=== PATIENT | male | born 1960 | race African-American/Black ===

== ENCOUNTER 2018-02-02 12:34 | Inpatient (IN) | payer OTHER ==
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
[2018-02-02] MEDS ORDERED: KETOROLAC TROMETHAMINE 30 MG/1 ML VIAL IM ONE (13:21)
[2018-02-02] MEDS ORDERED: CYCLOBENZAPRINE HCL 10 MG TABLET (FP) PO ONE ×2 (13:21→13:30)
[2018-02-02] MEDS ORDERED: KETOROLAC TROMETHAMINE 30 MG/1 ML VIAL ONE (13:26)
[2018-02-02] MEDS ORDERED: CYCLOBENZAPRINE HCL 10 MG TABLET (FP) ONE (13:26)
[2018-02-02] MEDS ORDERED: diazePAM 5 MG TABLET PO ONE (13:28)
[2018-02-02] MEDS ORDERED: ACETAMINOPHEN 325 MG TABLET (FP) PO ONE (13:28)
[2018-02-02] MEDS ORDERED: SODIUM CHLORIDE 0.9% 1000 ML INFUS.BAG IV ONE ×2 (13:29→17:05)
[2018-02-02] MEDS ORDERED: ACETAMINOPHEN 325 MG TABLET (FP) ONE (13:30)
[2018-02-02] MEDS ORDERED: diazePAM 5 MG TABLET ONE (13:31)
[2018-02-02 14:33] LABS: BASO % 0.7 % (0-2.0); EOS % 1.2 % (0-4.5); HEMATOCRIT 41.5 % (35.4-49); HEMOGLOBIN 13.5 GM/dL (11.7-16.9); MCH 25.8 pg (25.7-33.7); MCHC 32.5 g/dl (32.0-35.9); MEAN CELL VOLUME 79.4 fl (80-96); MEAN PLT VOLUME 9.8 fl (7.5-11.1); MONO % 9.5 % (3.8-10.2); NEUT % 69.6 % (42.8-82.8); PLATELET COUNT 222 K/MM3 (134-434); RBC 5.23 M/mm3 (4.00-5.60); RDW 14.6 % (11.9-15.9); WHITE BLOOD COUNT 10.1 K/mm3 (4.0-10.0)
[2018-02-02 15:01] LABS: INR 0.99 (0.83-1.09); PROTHROMBIN TIME (PATIENT) 11.7 SEC (9.7-13.0)
[2018-02-02 15:04] LABS: ACTIVATED PTT 25.7 SECONDS (25.2-36.5)
[2018-02-02 15:18] LABS: ALBUMIN 4.3 g/dl (3.4-5.0); ALK PHOS 116 U/L (45-117); ANION GAP 9 MMOL/L (8-16); BILIRUBIN,TOTAL 0.6 mg/dL (0.2-1); BLOOD UREA NITROGEN 42 mg/dL (7-18); CALCIUM 9.7 mg/dL (8.5-10.1); CHLORIDE 98 mmol/L (98-107); CO2 26 mmol/L (21-32); CREATININE 2.3 mg/dL (0.55-1.3); POTASSIUM 4.3 mmol/L (3.5-5.1); SGOT/AST 31 U/L (15-37); SGPT/ALT 45 U/L (13-61); SODIUM 133 mmol/L (136-145); TOT PROT 8.6 g/dl (6.4-8.2)
[2018-02-02 15:29] LABS: GLUCOSE,RANDOM 345 mg/dL (74-106)
[2018-02-02] MEDS ORDERED: CYCLOBENZAPRINE HCL 5 MG TABLET PO PRN ×2 (17:57→18:00)
[2018-02-02] MEDS: SODIUM CHLORIDE 1,000 ML IV SCH ×2 (18:45→22:28)
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
[2018-02-02 20:07] LABS: URINE APPEARANCE CLEAR; URINE BILIRUBIN NEGATIVE (<2.0 mg/dL); URINE COLOR LTYELLOW; URINE GLUCOSE (UA) 3+ (NEGATIVE); URINE KETONE NEGATIVE (NEGATIVE); URINE LEUK ESTERASE NEGATIVE (NEGATIVE); URINE NITRITE NEGATIVE (NEGATIVE); URINE PROTEIN 1+ (NEGATIVE); URINE UROBILINOGEN NEGATIVE mg/dL (0.2-1.0)
[2018-02-02 20:10] LABS: EPI CELLS RARE /HPF (FEW); URINE MUCUS RARE
[2018-02-02] MEDS ORDERED: oxyCODONE HCL 5 MG TABLET ONE (21:06)
[2018-02-02] MEDS: oxyCODONE HCL 5 MG TABLET PO PRN (21:17)
[2018-02-02] MEDS: METOPROLOL TARTRATE 25 MG TABLET (FP) PO SCH (22:29)
[2018-02-02] MEDS: INSULIN SLIDING SCALE (NOVOLOG) 1 VIAL SQ SCH (22:29)
[2018-02-03] MEDS: oxyCODONE HCL 5 MG TABLET PO PRN ×4 (01:59→22:25)
[2018-02-03] MEDS: INSULIN SLIDING SCALE (NOVOLOG) 1 VIAL SQ SCH ×4 (06:02→22:30)
[2018-02-03 08:12] LABS: HEMATOCRIT 37.2 % (35.4-49); HEMOGLOBIN 12.1 GM/dL (11.7-16.9); MCHC 32.5 g/dl (32.0-35.9); MEAN CELL VOLUME 80.1 fl (80-96); MEAN PLT VOLUME 9.6 fl (7.5-11.1); PLATELET COUNT 197 K/MM3 (134-434); RBC 4.65 M/mm3 (4.00-5.60); RDW 14.2 % (11.9-15.9); WHITE BLOOD COUNT 7.5 K/mm3 (4.0-10.0)
[2018-02-03 08:23] LABS: ANION GAP 6 MMOL/L (8-16); BLOOD UREA NITROGEN 38 mg/dL (7-18); CALCIUM 8.4 mg/dL (8.5-10.1); CHLORIDE 106 mmol/L (98-107); CO2 24 mmol/L (21-32); CREATININE 1.9 mg/dL (0.55-1.3); GLUCOSE,RANDOM 157 mg/dL (74-106); POTASSIUM 3.9 mmol/L (3.5-5.1); SODIUM 136 mmol/L (136-145)
[2018-02-03 08:26] LABS: CHOLESTEROL 161 mg/dL (50-200); HDL CHOLESTEROL 41 mg/dL (40-60); TRIGLYCERIDES 132 mg/dL (0-150)
[2018-02-03] MEDS ORDERED: INSULIN (NOVOLOG) ASPART 100 UNITS/ML 10ML VIAL ONE ×2 (08:45→10:44)
[2018-02-03] MEDS ORDERED: FLU VACCINE QUAD 60 MCG/0.5 ML (MDV 18-19) IM ONE (10:00)
[2018-02-03] MEDS: METOPROLOL TARTRATE 25 MG TABLET (FP) PO SCH ×2 (10:41→22:20)
[2018-02-03] MEDS: ASPIRIN 81 MG CHEWABLE TABLETS PO SCH (10:41)
[2018-02-03] MEDS: SODIUM CHLORIDE 1,000 ML IV SCH ×3 (10:41→22:20)
--- NOTE | 2018-02-03 10:41 | EKG ---
Test Reason : Blood Pressure : / mmHG Vent. Rate : 085 BPM Atrial Rate : 085 BPM P-R Int : 160 ms QRS Dur : 114 ms QT Int : 376 ms P-R-T Axes : 051 -25 227 degrees QTc Int : 447 ms NORMAL SINUS RHYTHM VOLTAGE CRITERIA FOR LEFT VENTRICULAR HYPERTROPHY CANNOT RULE OUT SEPTAL INFARCT (CITED ON OR BEFORE 23-JUN-2008) T WAVE ABNORMALITY, CONSIDER INFEROLATERAL ISCHEMIA ABNORMAL ECG WHEN COMPARED WITH ECG OF 23-JUN-2008 20:06, Confirmed by BULMARO WASHBURN MD ([id number]) on 02/03/2018 10:40:51 AM Referred By: Confirmed By:BULMARO WASHBURN MD
[2018-02-03] MEDS ORDERED: CYCLOBENZAPRINE HCL 10 MG TABLET (FP) PO PRN (10:46)
--- NOTE | 2018-02-03 13:07 | CONSULT ---
Consult Consult Specialty:: Nephrology Reason for Consultation:: KAVEH and rhabdo - History of Present Illness Chief Complaint: back pain History of Present Illness: Pt is a 57 year old male with pmhx of CAD, chronic back pain, AICD, and HLD who presented with right sided back pain that radiated down his leg. He was found to be in acute renal failure and was found to have rhabdo. He denies dysuria or hematuria. He denies nsaid use. He is on a statin. He denies history of kidney disease. He denies shortness of breath or lower ext edema. He denies fevers or chills. - History Source History Provided By: Patient - Past Medical History Cardio/Vascular: Yes: HTN, Hyperlipdemia Musculoskeletal: Yes: Chronic low back pain Endocrine: Yes: Diabetes Mellitus - Alcohol/Substance Use Hx Alcohol Use: Yes (occasion) - Smoking History Smoking history: Never smoked Have you smoked in the past 12 months: No Home Medications - Allergies Allergies/Adverse Reactions: Allergies Allergy/AdvReac Type Severity Reaction Status Date / Time No Known Allergies Allergy Verified 02/02/18 13:00 - Home Medications Home Medications: Ambulatory Orders Cyclobenzaprine HCl [Flexeril -] 10 mg PO TID #21 tablet 11/10/13 Oxycodone HCl/Acetaminophen [Percocet 5-325 mg Tablet -] 1 tab PO Q6H #10 tablet 11/10/13 metFORMIN HCL [Glucophage -] 0 mg PO DAILY 11/10/13 Family Disease History - Family Disease History Family History: Denies Review of Systems - Review of Systems Constitutional: reports: Malaise. denies: Chills, Fever Eyes: reports: No Symptoms HENT: reports: No Symptoms Neck: reports: No Symptoms Cardiovascular: reports: No Symptoms Respiratory: reports: No Symptoms Gastrointestinal: reports: No Symptoms Genitourinary: reports: No Symptoms Musculoskeletal: reports: Back Pain Neurological: reports: No Symptoms Endocrine: reports: No Symptoms Hematology/Lymphatic: reports: No Symptoms Psychiatric: reports: No Symptoms Physical Exam Vital Signs: Vital Signs Temperature 98.6 F 02/03/18 09:00 Pulse Rate 80 02/03/18 09:00 Respiratory Rate 18 02/03/18 09:00 Blood Pressure 138/96 02/03/18 09:00 O2 Sat by Pulse Oximetry (%) 99 02/02/18 22:00 Eyes: Yes: Conjunctiva Clear HENT: Yes: Atraumatic Neck: Yes: Supple Cardiovascular: Yes: S1, S2 Respiratory: Yes: CTA Bilaterally Gastrointestinal: Yes: Normal Bowel Sounds, Soft, Abdomen, Obese Renal/: Yes: WNL Musculoskeletal: Yes: Back Pain Edema: No Neurological: Yes: Oriented Psychiatric: Yes: Oriented Labs: CBC, BMP 02/03/18 06:50 02/03/18 06:50 Laboratory Tests 02/02/18 02/02/18 02/03/18 13:13 13:15 06:50 WBC 10.1 H 7.5 Creatinine 2.3 H Hemoglobin A1c % Creatine Kinase 1195 H Total LDL Cholesterol 02/03/18 02/03/18 02/03/18 06:50 06:50 06:50 WBC Creatinine 1.9 H Hemoglobin A1c % 12.1 H Creatine Kinase 784 H Total LDL Cholesterol 103 H Imaging - Results Ultrasound: Report Reviewed (right side hydro) Problem List - Problems (1) Hydronephrosis Code(s): N13.30 - UNSPECIFIED HYDRONEPHROSIS (2) Acute kidney injury Code(s): N17.9 - ACUTE KIDNEY FAILURE, UNSPECIFIED (3) Rhabdomyolysis Code(s): M62.82 - RHABDOMYOLYSIS (4) CAD (coronary artery disease) Code(s): I25.10 - ATHSCL HEART DISEASE OF [place] CORONARY ARTERY W/O ANG PCTRS (5) Hyperlipidemia Code(s): E78.5 - HYPERLIPIDEMIA, UNSPECIFIED (6) Hypertension Code(s): I10 - ESSENTIAL (PRIMARY) HYPERTENSION (7) Lumbar back pain Code(s): M54.5 - LOW BACK PAIN (8) Type 2 diabetes mellitus Code(s): E11.9 - TYPE 2 DIABETES MELLITUS WITHOUT COMPLICATIONS Assessment/Plan Current Medications Generic Name Dose Route Start Last Admin Trade Name Freq PRN Reason Stop Dose Admin Acetaminophen 650 mg 02/02/18 17:48 Tylenol - PO Q4H PRN PAIN LEVEL 1 - 3 Aspirin 81 mg 02/03/18 10:00 02/03/18 10:41 Asa - PO 81 mg DAILY KIRK Administration Cyclobenzaprine HCl 5 mg 02/03/18 10:46 02/03/18 12:52 Flexeril - PO 5 mg Q8H PRN Administration MUSCLE SPASMS Sodium Chloride 1,000 mls @ 125 mls/hr 02/02/18 18:00 02/03/18 10:41 Normal Saline - IV 125 mls/hr ASDIR KIRK Administration Insulin Aspart 1 vial 02/02/18 22:00 02/03/18 12:09 Novolog Vial Sliding Scale - SQ 8 units ACHS KIRK Administration Protocol Metoprolol Tartrate 25 mg 02/02/18 22:00 02/03/18 10:41 Lopressor - PO 25 mg BID KIRK Administration Oxycodone HCl 5 mg 02/02/18 17:58 Roxicodone - PO Q4H PRN PAIN LEVEL 4 - 6 Oxycodone HCl 10 mg 02/02/18 17:58 02/03/18 08:49 Roxicodone - PO 10 mg Q4H PRN Administration PAIN LEVEL 7 - 10 Laboratory Tests 02/02/18 19:38 Urine Protein 1+ H Urine Glucose (UA) 3+ H Urine Blood 1+ H Impression 1. KAVEH 2. rhabdo 3. right side hydro 4. DM uncontrolled 5. HTN 6. back pain 7. aicd 8. HLD Plan - decrease rate of fluids - unclear why pt has aicd - cpk is improving - pt says he was on a statin but does not remember which one - agree with holding metformin - pt will also need further outpt follow for CKD management and workup - urology eval for the hydro - repeat labs in am Dr Ivy
[2018-02-03] MEDS ORDERED: SODIUM CHLORIDE 1,000 ML IV SCH (13:13)
--- NOTE | 2018-02-03 13:58 | ECHO ---
Name: CITLALY KEATING Exam:Adult Echocardiogram Study Date: 02/03/2018 11:04 AM Age: 57 yrs Reason For Study: SOB CAD Height: 71 in Weight: 180 lb BSA: 2.0 m2 MMode/2D Measurements & Calculations IVSd: 1.0 cm Ao root diam: 3.0 cm LVIDd: 4.0 cm LA dimension: 3.5 cm LVIDs: 2.9 cm LVPWd: 0.99 cm EDV(Teich): 68.1 ml TAPSE: 1.4 cm ESV(Teich): 32.4 ml RV S Ej: 9.5 cm/sec Doppler Measurements & Calculations MV E max ej: 36.6 cm/sec TR max ej: 215.5 cm/sec MV A max ej: 50.9 cm/sec TR max P.6 mmHg MV E/A: 0.72 Med Peak E' Ej: 3.6 cm/sec Med E/e': 10.2 Lat Peak E' Ej: 4.8 cm/sec Lat E/e': 7.7 Procedure A complete two-dimensional transthoracic echocardiogram was performed (2D, M-mode, Doppler and color flow Doppler). The study was technically good with many images being of high quality. Left Ventricle The left ventricle is normal in size. There is severe concentric left ventricular hypertrophy. Left ventricular systolic function is normal. Ejection Fraction = 60-65%. E/A reversal with TDI revealing impaired relaxation and normal filling pressure (E/E' 10). No regional wall motion abnormalities noted. Right Ventricle The right ventricle is normal size. The right ventricular systolic function is normal. RV systolic TD I is 10 cm/s. Atria The left atrial size is normal. Right atrial size is normal. Mitral Valve There is mild mitral annular calcification. There is no mitral regurgitation noted. Tricuspid Valve The tricuspid valve is normal in structure and function. There is mild tricuspid regurgitation. Pulmo nary artery systolic pressure is at least 25 mmHg assuming RA pressure of 3 mmHg. Aortic Valve There is mild aortic sclerosis.;. No aortic regurgitation is present. Pulmonic Valve The pulmonic valve is not well visualized. Great Vessels The aortic root is normal size. Pericardium/Pleura There is no pericardial effusion. Interpretation Summary The left ventricle is normal in size. There is severe concentric left ventricular hypertrophy. Left ventricular systolic function is normal. No regional wall motion abnormalities noted. Ejection Fraction = 60-65%. The right ventricular systolic function is normal. The left atrial size is normal. Right atrial size is normal. There is mild mitral annular calcification. There is mild tricuspid regurgitation. Pulmonary artery systolic pressure is at least 25 mmHg assuming RA pressure of 3 mmHg There is mild aortic sclerosis.; There is no pericardial effusion. Previous study is not available for comparison French Gutiérrez MD 02/03/2018 01:57 PM
--- NOTE | 2018-02-03 21:32 | PN ---
Progress Note, Physician History of Present Illness: Pt still complains of back pain - Current Medication List Current Medications: Active Medications Acetaminophen (Tylenol -) 650 mg PO Q4H PRN PRN Reason: PAIN LEVEL 1 - 3 Aspirin (Asa -) 81 mg PO DAILY [facility] Last Admin: 02/03/18 10:41 Dose: 81 mg Celecoxib (Celebrex -) 200 mg PO BID [facility] Cyclobenzaprine HCl (Flexeril -) 10 mg PO Q8H PRN PRN Reason: MUSCLE SPASM Sodium Chloride (Normal Saline -) 1,000 mls @ 75 mls/hr IV ASDIR [facility] Last Admin: 02/03/18 13:54 Dose: 75 mls/hr Insulin Aspart (Novolog Vial Sliding Scale -) 1 vial SQ ACHS [facility]; Protocol Last Admin: 02/03/18 17:18 Dose: 6 units Metoprolol Tartrate (Lopressor -) 25 mg PO BID [facility] Last Admin: 02/03/18 10:41 Dose: 25 mg Oxycodone HCl (Roxicodone -) 5 mg PO Q4H PRN PRN Reason: PAIN LEVEL 4 - 6 Oxycodone HCl (Roxicodone -) 10 mg PO Q4H PRN PRN Reason: PAIN LEVEL 7 - 10 Last Admin: 02/03/18 16:53 Dose: 10 mg - Objective Vital Signs: Vital Signs Temperature 97.7 F 02/03/18 18:00 Pulse Rate 72 02/03/18 18:00 Respiratory Rate 20 02/03/18 18:00 Blood Pressure 144/75 02/03/18 18:00 O2 Sat by Pulse Oximetry (%) 99 02/03/18 10:00 HENT: Yes: WNL Neck: Yes: WNL, Supple Cardiovascular: Yes: WNL, Regular Rate and Rhythm Respiratory: Yes: WNL, Regular, CTA Bilaterally Gastrointestinal: Yes: WNL, Normal Bowel Sounds, Soft Labs: CBC, BMP 02/03/18 06:50 02/03/18 06:50 INR, PTT INR 0.99 (0.83-1.09) 02/02/18 13:15 Problem List - Problems (1) Acute on chronic renal failure Assessment/Plan: As per renal Cont IVF Monitor labs Avoid nephrotoxic meds Code(s): N17.9 - ACUTE KIDNEY FAILURE, UNSPECIFIED; N18.9 - CHRONIC KIDNEY DISEASE, UNSPECIFIED (2) Rhabdomyolysis Assessment/Plan: Cont IVF Code(s): M62.82 - RHABDOMYOLYSIS (3) Lumbar back pain Assessment/Plan: Pain management consult NSG consult Code(s): M54.5 - LOW BACK PAIN (4) CAD (coronary artery disease) Assessment/Plan: Cardio consult Code(s): I25.10 - ATHSCL HEART DISEASE OF [place] CORONARY ARTERY W/O ANG PCTRS (5) Hyperlipidemia Code(s): E78.5 - HYPERLIPIDEMIA, UNSPECIFIED (6) Hypertension Code(s): I10 - ESSENTIAL (PRIMARY) HYPERTENSION (7) Type 2 diabetes mellitus Code(s): E11.9 - TYPE 2 DIABETES MELLITUS WITHOUT COMPLICATIONS
[2018-02-03] MEDS ORDERED: PT OWN MED DRAWER 7, Y5N ONE (21:47)
[2018-02-03] MEDS: CELECOXIB 200 MG CAPSULE PO SCH (22:20)
[2018-02-03 23:01] LABS: URINE APPEARANCE CLEAR; URINE BILIRUBIN NEGATIVE (<2.0 mg/dL); URINE COLOR LTYELLOW; URINE GLUCOSE (UA) 3+ (NEGATIVE); URINE KETONE NEGATIVE (NEGATIVE); URINE LEUK ESTERASE NEGATIVE (NEGATIVE); URINE NITRITE NEGATIVE (NEGATIVE); URINE PROTEIN NEGATIVE (NEGATIVE); URINE UROBILINOGEN NEGATIVE mg/dL (0.2-1.0)
[2018-02-03 23:44] LABS: RATIO URIN PROTEIN/URIN CREAT 0.16 MG/DL
[2018-02-04] MEDS: CYCLOBENZAPRINE HCL 10 MG TABLET (FP) PO PRN ×2 (01:11→12:16)
[2018-02-04] MEDS: oxyCODONE HCL 5 MG TABLET PO PRN ×4 (03:20→21:25)
[2018-02-04] MEDS: INSULIN SLIDING SCALE (NOVOLOG) 1 VIAL SQ SCH ×4 (06:45→21:34)
[2018-02-04 09:12] LABS: BASO % 0.9 % (0-2.0); EOS % 2.2 % (0-4.5); HEMATOCRIT 39.7 % (35.4-49); HEMOGLOBIN 12.6 GM/dL (11.7-16.9); LYMPH % 32.8 % (8-40); MCH 25.9 pg (25.7-33.7); MCHC 31.8 g/dl (32.0-35.9); MEAN CELL VOLUME 81.5 fl (80-96); MONO % 9.3 % (3.8-10.2); NEUT % 54.8 % (42.8-82.8); PLATELET COUNT 206 K/MM3 (134-434); RBC 4.87 M/mm3 (4.00-5.60); RDW 14.4 % (11.9-15.9); WHITE BLOOD COUNT 6.9 K/mm3 (4.0-10.0)
[2018-02-04] MEDS: ASPIRIN 81 MG CHEWABLE TABLETS PO SCH (09:13)
[2018-02-04] MEDS: METOPROLOL TARTRATE 25 MG TABLET (FP) PO SCH ×2 (09:13→21:26)
[2018-02-04 09:38] LABS: ALBUMIN 3.7 g/dl (3.4-5.0); ALK PHOS 93 U/L (45-117); ANION GAP 0 MMOL/L (8-16); BILIRUBIN,TOTAL 0.6 mg/dL (0.2-1); BLOOD UREA NITROGEN 33 mg/dL (7-18); CALCIUM 8.4 mg/dL (8.5-10.1); CHLORIDE 104 mmol/L (98-107); CO2 28 mmol/L (21-32); CREATININE 1.8 mg/dL (0.55-1.3); GLUCOSE,RANDOM 156 mg/dL (74-106); POTASSIUM 4.5 mmol/L (3.5-5.1); SGOT/AST 20 U/L (15-37); SGPT/ALT 36 U/L (13-61); SODIUM 132 mmol/L (136-145); TOT PROT 7.4 g/dl (6.4-8.2)
[2018-02-04] MEDS: CELECOXIB 200 MG CAPSULE PO SCH ×2 (10:00→21:35)
--- NOTE | 2018-02-04 10:15 | CON.CARD ---
Consult Consult Specialty:: Cardiology Referred by:: Darline Reason for Consultation:: CAD - History of Present Illness Chief Complaint: leg pain History of Present Illness: The patient is a 57 year old male with a significant past medical history of HTN , NIDDM, chol, CKD, chronic low back pain, CHF, EF 40%, s/p pacemaker, MIx2 and 3 stents who presents to the ER with worsening low back pain for the past 3 days. found with KAVEH/elevated CPK, troponin normal. No chest pain, sob, orthopnea, pnd or edema. Recent admission to [facility] for chest pain, cath 12/20/17 nonobstructive CAD patent stents. EF 40% AICD Biotronik placed due to 2:1 AVB 12/23/17 - History Source History Provided By: Patient, Medical Record - Past Medical History Cardio/Vascular: Yes: HTN, Hyperlipdemia Musculoskeletal: Yes: Chronic low back pain Endocrine: Yes: Diabetes Mellitus - Alcohol/Substance Use Hx Alcohol Use: Yes (occasion) - Smoking History Smoking history: Never smoked Have you smoked in the past 12 months: No Home Medications - Allergies Allergies/Adverse Reactions: Allergies Allergy/AdvReac Type Severity Reaction Status Date / Time No Known Allergies Allergy Verified 02/02/18 13:00 - Home Medications Home Medications: Ambulatory Orders Cyclobenzaprine HCl [Flexeril -] 10 mg PO TID #21 tablet 11/10/13 Oxycodone HCl/Acetaminophen [Percocet 5-325 mg Tablet -] 1 tab PO Q6H #10 tablet 11/10/13 metFORMIN HCL [Glucophage -] 0 mg PO DAILY 11/10/13 Vital Signs: Vital Signs Temperature 97.7 F 02/04/18 09:16 Pulse Rate 80 02/04/18 09:16 Respiratory Rate 18 02/04/18 09:16 Blood Pressure 153/52 L 02/04/18 09:16 O2 Sat by Pulse Oximetry (%) 99 02/03/18 21:00 Constitutional: Yes: No Distress, Calm Eyes: Yes: Conjunctiva Clear, EOM Intact HENT: Yes: Atraumatic, Normocephalic Neck: Yes: Supple, Trachea Midline Respiratory: Yes: Regular, CTA Bilaterally Gastrointestinal: Yes: Normal Bowel Sounds, Soft Cardiovascular: Yes: Regular Rate and Rhythm JVD: No Carotid Bruit: No PMI: Non-Displaced Heart Sounds: Yes: S1, S2 Musculoskeletal: Yes: Back Pain Extremities: Yes: WNL Edema: No Peripheral Pulses WNL: Yes - Other Data Labs, Other Data: CBC, BMP 02/04/18 08:25 02/04/18 08:25 INR, PTT INR 0.99 (0.83-1.09) 02/02/18 13:15 Imaging - Results Chest X-ray: Report Reviewed EKG: Report Reviewed Assessment/Plan The patient is a 57 year old male with a significant past medical history of HTN , NIDDM, chol, CKD, chronic low back pain, CHF, EF 40%, s/p pacemaker, MIx2 and 3 stents who presents to the ER with worsening low back pain for the past 3 days. found with KAVEH/elevated CPK, troponin normal. No chest pain, sob, orthopnea, pnd or edema. Recent admission to [facility] for chest pain, cath 12/20/17 nonobstructive CAD patent stents. EF 40% AICD Biotronik placed due to 2:1 AVB 12/23/17. Echo 02/03/18: severe LVH nlef. Plan: 1. CAD stable with recent cath nonobstructive CAD. No symptoms. 2. CHF stable, hold ACEI or ARB due to KAVEH. EF is now normal. 3. AICD--recently checked. No need for repeat interogation. fu at [facility]. will follow as needed.
--- NOTE | 2018-02-04 13:55 | CON.GU ---
Consult Consult Specialty:: Referred by:: medicine Reason for Consultation:: hydronephrosis - History of Present Illness Chief Complaint: hydronephrosis History of Present Illness: 57 year old male with long history of chronic back pain who noticed recently worsening back pain midline to the right. No other history of urinary complaints. CT lumbar spine noted mild right hydronephrosis. No stone history - History Source History Provided By: Patient, Medical Record Limitations to Obtaining History: No Limitations - Past Medical History Cardio/Vascular: Yes: HTN, Hyperlipdemia Renal/: Yes: Renal Inusuff. No: BPH, Hematuria, Renal Calculi, UTI Musculoskeletal: Yes: Chronic low back pain Endocrine: Yes: Diabetes Mellitus - Alcohol/Substance Use Hx Alcohol Use: Yes (occasion) - Smoking History Smoking history: Never smoked Have you smoked in the past 12 months: No Home Medications - Allergies Allergies/Adverse Reactions: Allergies Allergy/AdvReac Type Severity Reaction Status Date / Time No Known Allergies Allergy Verified 02/02/18 13:00 - Home Medications Home Medications: Ambulatory Orders Cyclobenzaprine HCl [Flexeril -] 10 mg PO TID #21 tablet 11/10/13 Oxycodone HCl/Acetaminophen [Percocet 5-325 mg Tablet -] 1 tab PO Q6H #10 tablet 11/10/13 metFORMIN HCL [Glucophage -] 0 mg PO DAILY 11/10/13 Review of Systems - Review of Systems Genitourinary: reports: No Symptoms Physical Exam- Vital Signs: Vital Signs Temperature 97.7 F 02/04/18 09:16 Pulse Rate 80 02/04/18 09:16 Respiratory Rate 18 02/04/18 09:16 Blood Pressure 153/52 L 02/04/18 09:16 O2 Sat by Pulse Oximetry (%) 96 02/04/18 09:00 Constitutional: Yes: Well Nourished, Mild Distress Gastrointestinal: Yes: Soft, Abdomen, Obese Renal/: No: Bladder Distention, CVA Tenderness - Left, CVA Tenderness - Right , Eddy Present, Hematuria, Incontinence Labs: CBC, BMP 02/04/18 08:25 02/04/18 08:25 Problem List - Problems (1) Hydronephrosis Assessment/Plan: pt with mild bilateral hydroneprhosis without obvious obstruction. unlikely source of KAVEH Code(s): N13.30 - UNSPECIFIED HYDRONEPHROSIS
[2018-02-04] MEDS: SODIUM CHLORIDE 1,000 ML IV SCH (16:39)
--- NOTE | 2018-02-04 18:06 | PN ---
Progress Note, Physician History of Present Illness: Pt seen and examined at bedside. He is awake and alert. He denies chest pain. He denies dysuria or hematuria. - Current Medication List Current Medications: Active Medications Acetaminophen (Tylenol -) 650 mg PO Q4H PRN PRN Reason: PAIN LEVEL 1 - 3 Aspirin (Asa -) 81 mg PO DAILY [facility] Last Admin: 02/04/18 09:13 Dose: 81 mg Celecoxib (Celebrex -) 200 mg PO BID [facility] Last Admin: 02/04/18 10:00 Dose: 200 mg Cyclobenzaprine HCl (Flexeril -) 10 mg PO Q8H PRN PRN Reason: MUSCLE SPASM Last Admin: 02/04/18 12:16 Dose: 10 mg Insulin Aspart (Novolog Vial Sliding Scale -) 1 vial SQ [facility]; Protocol Last Admin: 02/04/18 17:37 Dose: 2 units Metoprolol Tartrate (Lopressor -) 25 mg PO BID [facility] Last Admin: 02/04/18 09:13 Dose: 25 mg Oxycodone HCl (Roxicodone -) 5 mg PO Q4H PRN PRN Reason: PAIN LEVEL 4 - 6 Last Admin: 02/04/18 15:22 Dose: 5 mg Oxycodone HCl (Roxicodone -) 10 mg PO Q4H PRN PRN Reason: PAIN LEVEL 7 - 10 Last Admin: 02/04/18 03:20 Dose: 10 mg - Objective Vital Signs: Vital Signs Temperature 97.6 F 02/04/18 14:30 Pulse Rate 77 02/04/18 14:30 Respiratory Rate 20 02/04/18 14:30 Blood Pressure 136/75 02/04/18 14:30 O2 Sat by Pulse Oximetry (%) 96 02/04/18 09:00 Constitutional: Yes: Calm Eyes: Yes: Conjunctiva Clear HENT: Yes: Atraumatic Neck: Yes: Supple Cardiovascular: Yes: S1, S2 Respiratory: Yes: CTA Bilaterally Gastrointestinal: Yes: Normal Bowel Sounds, Soft, Abdomen, Obese Genitourinary: Yes: WNL Musculoskeletal: Yes: Back Pain Edema: No Neurological: Yes: Oriented Psychiatric: Yes: Oriented Labs: CBC, BMP 02/04/18 08:25 02/04/18 08:25 INR, PTT INR 0.99 (0.83-1.09) 02/02/18 13:15 Problem List - Problems (1) Hydronephrosis Code(s): N13.30 - UNSPECIFIED HYDRONEPHROSIS (2) Acute kidney injury Code(s): N17.9 - ACUTE KIDNEY FAILURE, UNSPECIFIED (3) Rhabdomyolysis Code(s): M62.82 - RHABDOMYOLYSIS (4) CAD (coronary artery disease) Code(s): I25.10 - ATHSCL HEART DISEASE OF [place] CORONARY ARTERY W/O ANG PCTRS (5) Hyperlipidemia Code(s): E78.5 - HYPERLIPIDEMIA, UNSPECIFIED (6) Hypertension Code(s): I10 - ESSENTIAL (PRIMARY) HYPERTENSION (7) Lumbar back pain Code(s): M54.5 - LOW BACK PAIN (8) Type 2 diabetes mellitus Code(s): E11.9 - TYPE 2 DIABETES MELLITUS WITHOUT COMPLICATIONS Assessment/Plan Current Medications Generic Name Dose Route Start Last Admin Trade Name Freq PRN Reason Stop Dose Admin Acetaminophen 650 mg 02/02/18 17:48 Tylenol - PO Q4H PRN PAIN LEVEL 1 - 3 Aspirin 81 mg 02/03/18 10:00 02/04/18 09:13 Asa - PO 81 mg DAILY KIRK Administration Celecoxib 200 mg 02/03/18 22:00 02/04/18 10:00 Celebrex - PO 200 mg BID KIRK Administration Cyclobenzaprine HCl 10 mg 02/03/18 13:59 02/04/18 12:16 Flexeril - PO 10 mg Q8H PRN Administration MUSCLE SPASM Insulin Aspart 1 vial 02/02/18 22:00 02/04/18 17:37 Novolog Vial Sliding Scale - SQ 2 units ACHS KIRK Administration Protocol Metoprolol Tartrate 25 mg 02/02/18 22:00 02/04/18 09:13 Lopressor - PO 25 mg BID KIRK Administration Oxycodone HCl 5 mg 02/02/18 17:58 02/04/18 15:22 Roxicodone - PO 5 mg Q4H PRN Administration PAIN LEVEL 4 - 6 Oxycodone HCl 10 mg 02/02/18 17:58 02/04/18 03:20 Roxicodone - PO 10 mg Q4H PRN Administration PAIN LEVEL 7 - 10 Laboratory Tests 02/03/18 02/03/18 22:00 22:00 Urine Protein Negative Urine Glucose (UA) 3+ H Urine Blood Negative Protein/Creatinin Ratio 0.16 Impression 1. KAVEH 2. rhabdo 3. right side hydro 4. DM uncontrolled 5. HTN 6. back pain 7. aicd 8. HLD Plan - can hold off fluids as he has history of CHF - cpk is improving - repeat labs in am - statin on hold - repeat urine studies are improved - urology input appreciated, still unclear why he has hydro - repeat labs in am Dr Ivy
[2018-02-04] MEDS ORDERED: PT OWN MED DRAWER 7, Y5N ONE (21:31)
--- NOTE | 2018-02-04 21:34 | CONSULT ---
Consult - text type - Consultation Consultation Note: NEUROSURGERY CONSULTATION Anton Gill is a 57 year old male who has a long history of back pain which has recently progressed. Three years ago he was found to have an arythmia and was treated with an implantable defibrillator. This was apparently repositioned and removed and later replaced due to a deep infection. 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 He has not had recent infections and does not have fevers. [place] but developed severe progression of his back pain. He cannot have an MRI secondary to shrapnel from an old injury. CT Lumbar demonstrates L5S1 disc hyperdensity which may represent fusion. 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 Although there is no obvious compression or infection, his symptoms are consisted with instability. I will review his imaging further with colleagues and make recommendations regarding potential treatment strategies.
--- NOTE | 2018-02-04 22:11 | PN ---
Progress Note, Physician History of Present Illness: Pt has no IV access despite multiple attempts - Current Medication List Current Medications: Active Medications Acetaminophen (Tylenol -) 650 mg PO Q4H PRN PRN Reason: PAIN LEVEL 1 - 3 Aspirin (Asa -) 81 mg PO DAILY [facility] Last Admin: 02/04/18 09:13 Dose: 81 mg Celecoxib (Celebrex -) 200 mg PO BID [facility] Last Admin: 02/04/18 21:35 Dose: 200 mg Cyclobenzaprine HCl (Flexeril -) 10 mg PO Q8H PRN PRN Reason: MUSCLE SPASM Last Admin: 02/04/18 12:16 Dose: 10 mg Insulin Aspart (Novolog Vial Sliding Scale -) 1 vial SQ ACHS [facility]; Protocol Last Admin: 02/04/18 21:34 Dose: 6 units Metoprolol Tartrate (Lopressor -) 25 mg PO BID [facility] Last Admin: 02/04/18 21:26 Dose: 25 mg Oxycodone HCl (Roxicodone -) 5 mg PO Q4H PRN PRN Reason: PAIN LEVEL 4 - 6 Last Admin: 02/04/18 15:22 Dose: 5 mg Oxycodone HCl (Roxicodone -) 10 mg PO Q4H PRN PRN Reason: PAIN LEVEL 7 - 10 Last Admin: 02/04/18 21:25 Dose: 10 mg - Objective Vital Signs: Vital Signs Temperature 97.7 F 02/04/18 21:37 Pulse Rate 77 02/04/18 21:37 Respiratory Rate 20 02/04/18 21:37 Blood Pressure 145/79 02/04/18 21:37 O2 Sat by Pulse Oximetry (%) 96 02/04/18 09:00 Constitutional: Yes: Well Nourished Neck: Yes: WNL, Supple Cardiovascular: Yes: WNL, Regular Rate and Rhythm Respiratory: Yes: WNL, Regular, CTA Bilaterally Gastrointestinal: Yes: WNL, Normal Bowel Sounds, Soft Labs: CBC, BMP 02/04/18 08:25 02/04/18 08:25 INR, PTT INR 0.99 (0.83-1.09) 02/02/18 13:15 Problem List - Problems (1) Acute on chronic renal failure Assessment/Plan: IVF was dc'ed Monitor labs Avoid nephrotoxic meds Code(s): N17.9 - ACUTE KIDNEY FAILURE, UNSPECIFIED; N18.9 - CHRONIC KIDNEY DISEASE, UNSPECIFIED (2) Rhabdomyolysis Assessment/Plan: Improving CPK IVF dc'ed Code(s): M62.82 - RHABDOMYOLYSIS (3) Lumbar back pain Assessment/Plan: NSG consult appreciated Awaiting final recommendation about spine instability Code(s): M54.5 - LOW BACK PAIN (4) CAD (coronary artery disease) Code(s): I25.10 - ATHSCL HEART DISEASE OF [place] CORONARY ARTERY W/O ANG PCTRS (5) Hyperlipidemia Code(s): E78.5 - HYPERLIPIDEMIA, UNSPECIFIED (6) Hypertension Code(s): I10 - ESSENTIAL (PRIMARY) HYPERTENSION (7) Type 2 diabetes mellitus Code(s): E11.9 - TYPE 2 DIABETES MELLITUS WITHOUT COMPLICATIONS
[2018-02-05] MEDS: oxyCODONE HCL 5 MG TABLET PO PRN ×4 (02:51→23:50)
[2018-02-05] MEDS: INSULIN SLIDING SCALE (NOVOLOG) 1 VIAL SQ SCH ×4 (06:44→23:00)
[2018-02-05 08:51] LABS: ALBUMIN 3.6 g/dl (3.4-5.0); ALK PHOS 90 U/L (45-117); ANION GAP 0 MMOL/L (8-16); BILIRUBIN,TOTAL 0.4 mg/dL (0.2-1); BLOOD UREA NITROGEN 31 mg/dL (7-18); CALCIUM 8.6 mg/dL (8.5-10.1); CHLORIDE 107 mmol/L (98-107); CO2 25 mmol/L (21-32); CREATININE 1.8 mg/dL (0.55-1.3); GLUCOSE,RANDOM 156 mg/dL (74-106); SGOT/AST 20 U/L (15-37); SGPT/ALT 37 U/L (13-61); SODIUM 132 mmol/L (136-145); TOT PROT 7.2 g/dl (6.4-8.2)
[2018-02-05] MEDS: CELECOXIB 200 MG CAPSULE PO SCH ×2 (10:02→23:00)
[2018-02-05] MEDS: ASPIRIN 81 MG CHEWABLE TABLETS PO SCH (10:02)
[2018-02-05] MEDS: METOPROLOL TARTRATE 25 MG TABLET (FP) PO SCH ×2 (10:02→23:00)
[2018-02-05] MEDS ORDERED: INSULIN (NOVOLOG) ASPART 100 UNITS/ML 10ML VIAL ONE (11:29)
--- NOTE | 2018-02-05 12:02 | PN ---
Progress Note, Physician History of Present Illness: Pt seen and examined at bedside. He is awake and alert. He denies shortness of breath. He still complains of back discomfort. - Current Medication List Current Medications: Active Medications Acetaminophen (Tylenol -) 650 mg PO Q4H PRN PRN Reason: PAIN LEVEL 1 - 3 Aspirin (Asa -) 81 mg PO DAILY [facility] Last Admin: 02/05/18 10:02 Dose: 81 mg Celecoxib (Celebrex -) 200 mg PO BID [facility] Last Admin: 02/05/18 10:02 Dose: 200 mg Cyclobenzaprine HCl (Flexeril -) 10 mg PO Q8H PRN PRN Reason: MUSCLE SPASM Last Admin: 02/04/18 12:16 Dose: 10 mg Insulin Aspart (Novolog Vial Sliding Scale -) 1 vial SQ ACHS [facility]; Protocol Last Admin: 02/05/18 11:35 Dose: 4 units Metoprolol Tartrate (Lopressor -) 25 mg PO BID [facility] Last Admin: 02/05/18 10:02 Dose: 25 mg Oxycodone HCl (Roxicodone -) 5 mg PO Q4H PRN PRN Reason: PAIN LEVEL 4 - 6 Last Admin: 02/04/18 15:22 Dose: 5 mg Oxycodone HCl (Roxicodone -) 10 mg PO Q4H PRN PRN Reason: PAIN LEVEL 7 - 10 Last Admin: 02/05/18 08:30 Dose: 10 mg - Objective Vital Signs: Vital Signs Temperature 97.2 F L 02/05/18 09:21 Pulse Rate 76 02/05/18 09:21 Respiratory Rate 18 02/05/18 09:21 Blood Pressure 128/72 02/05/18 09:21 O2 Sat by Pulse Oximetry (%) 96 02/04/18 21:00 Constitutional: Yes: Calm Eyes: Yes: Conjunctiva Clear HENT: Yes: Atraumatic Cardiovascular: Yes: S1, S2 Respiratory: Yes: CTA Bilaterally Gastrointestinal: Yes: Normal Bowel Sounds, Soft, Abdomen, Obese Genitourinary: Yes: WNL Musculoskeletal: Yes: Back Pain Edema: No Neurological: Yes: Oriented Psychiatric: Yes: Oriented Labs: CBC, BMP 02/04/18 08:25 02/05/18 07:30 INR, PTT INR 0.99 (0.83-1.09) 02/02/18 13:15 Problem List - Problems (1) Hydronephrosis Code(s): N13.30 - UNSPECIFIED HYDRONEPHROSIS (2) Acute kidney injury Code(s): N17.9 - ACUTE KIDNEY FAILURE, UNSPECIFIED (3) Rhabdomyolysis Code(s): M62.82 - RHABDOMYOLYSIS (4) CAD (coronary artery disease) Code(s): I25.10 - ATHSCL HEART DISEASE OF [place] CORONARY ARTERY W/O ANG PCTRS (5) Hyperlipidemia Code(s): E78.5 - HYPERLIPIDEMIA, UNSPECIFIED (6) Hypertension Code(s): I10 - ESSENTIAL (PRIMARY) HYPERTENSION (7) Lumbar back pain Code(s): M54.5 - LOW BACK PAIN (8) Type 2 diabetes mellitus Code(s): E11.9 - TYPE 2 DIABETES MELLITUS WITHOUT COMPLICATIONS Assessment/Plan Current Medications Generic Name Dose Route Start Last Admin Trade Name Freq PRN Reason Stop Dose Admin Acetaminophen 650 mg 02/02/18 17:48 Tylenol - PO Q4H PRN PAIN LEVEL 1 - 3 Aspirin 81 mg 02/03/18 10:00 02/05/18 10:02 Asa - PO 81 mg DAILY [facility] Administration Celecoxib 200 mg 02/03/18 22:00 02/05/18 10:02 Celebrex - PO 200 mg BID [facility] Administration Cyclobenzaprine HCl 10 mg 02/03/18 13:59 02/04/18 12:16 Flexeril - PO 10 mg Q8H PRN Administration MUSCLE SPASM Insulin Aspart 1 vial 02/02/18 22:00 02/05/18 11:35 Novolog Vial Sliding Scale - SQ 4 units ACHS [facility] Administration Protocol Metoprolol Tartrate 25 mg 02/02/18 22:00 02/05/18 10:02 Lopressor - PO 25 mg BID [facility] Administration Oxycodone HCl 5 mg 02/02/18 17:58 02/04/18 15:22 Roxicodone - PO 5 mg Q4H PRN Administration PAIN LEVEL 4 - 6 Oxycodone HCl 10 mg 02/02/18 17:58 02/05/18 08:30 Roxicodone - PO 10 mg Q4H PRN Administration PAIN LEVEL 7 - 10 Impression 1. KAVEH 2. rhabdo 3. right side hydro 4. DM uncontrolled 5. HTN 6. back pain 7. aicd 8. HLD Plan - called pmd Dr Shashank Smart at [phone], pt had a chemical dependency nurse of 1.67 with a GFR of 51 on 10/10/17 - repeat labs in am - avoid nsaids and nephrotoxins - will need outpt renal workup - check spep as he has back pain - repeat cpk in am - will give a liter of fluids - urology input appreciated, still unclear why he has hydro Dr Ivy
[2018-02-05] MEDS ORDERED: SODIUM CHLORIDE 1,000 ML IV SCH (12:15)
--- NOTE | 2018-02-05 16:24 | PN ---
Progress Note (short form) - Note Progress Note: Patient lying comfortably in bed. He continues to have back pain and difficulties with IV access. Imaging reviewed, and while persisting/recurrent osteomyelitis does not seem likely, would appreciate input from Dr. Cheung regarding this possibility. Instability is not clinically worrisome and would likely only manifest as pain which should be ameliorated with TLSO brace. Surgical intervention for the spine is premature at this point without a specific identified pain generator, inability to obtain MRI safely, Renal disease which is still being stabilized and potential for infection. -TLSO bracing should help with pain -Will continue to follow to determine whether Surgery may be appropriate in the future
--- NOTE | 2018-02-05 21:54 | PN ---
Progress Note, Physician History of Present Illness: Pt w/ persistent back pain - Current Medication List Current Medications: Active Medications Acetaminophen (Tylenol -) 650 mg PO Q4H PRN PRN Reason: PAIN LEVEL 1 - 3 Aspirin (Asa -) 81 mg PO DAILY [facility] Last Admin: 02/05/18 10:02 Dose: 81 mg Celecoxib (Celebrex -) 200 mg PO BID [facility] Last Admin: 02/05/18 10:02 Dose: 200 mg Cyclobenzaprine HCl (Flexeril -) 10 mg PO Q8H PRN PRN Reason: MUSCLE SPASM Last Admin: 02/04/18 12:16 Dose: 10 mg Sodium Chloride (Normal Saline -) 1,000 mls @ 50 mls/hr IV ASDIR [facility] Stop: 02/06/18 12:03 Last Admin: 02/05/18 16:45 Dose: 50 mls/hr Insulin Aspart (Novolog Vial Sliding Scale -) 1 vial SQ [facility]; Protocol Last Admin: 02/05/18 16:59 Dose: 4 units Metoprolol Tartrate (Lopressor -) 25 mg PO BID [facility] Last Admin: 02/05/18 10:02 Dose: 25 mg - Objective Vital Signs: Vital Signs Temperature 98.2 F 02/05/18 15:49 Pulse Rate 68 02/05/18 15:49 Respiratory Rate 22 H 02/05/18 15:49 Blood Pressure 130/66 02/05/18 15:49 O2 Sat by Pulse Oximetry (%) 96 02/05/18 09:00 Neck: Yes: WNL, Supple Cardiovascular: Yes: WNL, Regular Rate and Rhythm Respiratory: Yes: WNL, Regular, CTA Bilaterally Gastrointestinal: Yes: WNL, Normal Bowel Sounds, Soft Labs: CBC, BMP 02/04/18 08:25 02/05/18 07:30 INR, PTT INR 0.99 (0.83-1.09) 02/02/18 13:15 Problem List - Problems (1) Acute on chronic renal failure Assessment/Plan: Pt now on IVF Creatinine increased again As per renal Monitor labs Avoid nephrotoxic meds Code(s): N17.9 - ACUTE KIDNEY FAILURE, UNSPECIFIED; N18.9 - CHRONIC KIDNEY DISEASE, UNSPECIFIED (2) Rhabdomyolysis Assessment/Plan: Improving CPK Cont IVF Code(s): M62.82 - RHABDOMYOLYSIS (3) Lumbar back pain Assessment/Plan: As per NSG no surgical intervention at this time Pain management consult Will also get ID consult due to h/o osteomyelitis Code(s): M54.5 - LOW BACK PAIN (4) CAD (coronary artery disease) Code(s): I25.10 - ATHSCL HEART DISEASE OF [place] CORONARY ARTERY W/O ANG PCTRS (5) Hyperlipidemia Code(s): E78.5 - HYPERLIPIDEMIA, UNSPECIFIED (6) Hypertension Code(s): I10 - ESSENTIAL (PRIMARY) HYPERTENSION (7) Type 2 diabetes mellitus Code(s): E11.9 - TYPE 2 DIABETES MELLITUS WITHOUT COMPLICATIONS
[2018-02-05] MEDS ORDERED: ACETAMINOPHEN 325 MG TABLET (FP) PO PRN (22:13)
[2018-02-05] MEDS: ACETAMINOPHEN 325 MG TABLET (FP) PO PRN (23:49)
[2018-02-05] MEDS: CYCLOBENZAPRINE HCL 10 MG TABLET (FP) PO PRN (23:50)
[2018-02-06] MEDS: oxyCODONE HCL 5 MG TABLET PO PRN ×3 (05:55→21:06)
[2018-02-06] MEDS: ACETAMINOPHEN 325 MG TABLET (FP) PO PRN ×3 (05:56→21:07)
[2018-02-06] MEDS: INSULIN SLIDING SCALE (NOVOLOG) 1 VIAL SQ SCH ×4 (06:41→21:11)
[2018-02-06 07:25] LABS: BASO % 0.7 % (0-2.0); EOS % 1.8 % (0-4.5); HEMATOCRIT 40.2 % (35.4-49); HEMOGLOBIN 12.7 GM/dL (11.7-16.9); LYMPH % 27.1 % (8-40); MCH 25.6 pg (25.7-33.7); MCHC 31.5 g/dl (32.0-35.9); MEAN CELL VOLUME 81.3 fl (80-96); MEAN PLT VOLUME 9.6 fl (7.5-11.1); MONO % 10.7 % (3.8-10.2); NEUT % 59.7 % (42.8-82.8); PLATELET COUNT 226 K/MM3 (134-434); RBC 4.94 M/mm3 (4.00-5.60); RDW 14.5 % (11.9-15.9); WHITE BLOOD COUNT 6.4 K/mm3 (4.0-10.0)
[2018-02-06 08:01] LABS: ALBUMIN 3.7 g/dl (3.4-5.0); ALK PHOS 93 U/L (45-117); ANION GAP 7 MMOL/L (8-16); BILIRUBIN,TOTAL 0.4 mg/dL (0.2-1); BLOOD UREA NITROGEN 30 mg/dL (7-18); CALCIUM 8.4 mg/dL (8.5-10.1); CHLORIDE 101 mmol/L (98-107); CO2 26 mmol/L (21-32); CREATININE 1.9 mg/dL (0.55-1.3); GLUCOSE,RANDOM 188 mg/dL (74-106); POTASSIUM 4.4 mmol/L (3.5-5.1); SGOT/AST 26 U/L (15-37); SGPT/ALT 39 U/L (13-61); SODIUM 134 mmol/L (136-145); TOT PROT 7.7 g/dl (6.4-8.2)
[2018-02-06] MEDS: CYCLOBENZAPRINE HCL 10 MG TABLET (FP) PO PRN ×2 (08:46→17:43)
[2018-02-06] MEDS ORDERED: PT OWN MED DRAWER 7, Y5N ONE (09:53)
[2018-02-06] MEDS: METOPROLOL TARTRATE 25 MG TABLET (FP) PO SCH ×2 (09:59→21:06)
[2018-02-06] MEDS: ASPIRIN 81 MG CHEWABLE TABLETS PO SCH (09:59)
[2018-02-06] MEDS: CELECOXIB 200 MG CAPSULE PO SCH (09:59)
--- NOTE | 2018-02-06 11:59 | PN ---
Progress Note (short form) - Note Progress Note: Patient remains stable. Awaiting TLSO. No surgical intervention planned at this time, however, will await Dr. Cheung's assessment of potential for residual infection.
--- NOTE | 2018-02-06 16:41 | PN ---
Progress Note, Physician History of Present Illness: PT seen and examined at bedside. He is awake and alert. He denies shortness of breath. He complains of back pain. - Current Medication List Current Medications: Active Medications Acetaminophen (Tylenol -) 650 mg PO Q4H PRN PRN Reason: PAIN LEVEL 1 - 3 Acetaminophen (Tylenol -) 325 mg PO Q8H PRN PRN Reason: PAIN 6-10 Last Admin: 02/06/18 14:08 Dose: 325 mg Aspirin (Asa -) 81 mg PO DAILY [facility] Last Admin: 02/06/18 09:59 Dose: 81 mg Celecoxib (Celebrex -) 200 mg PO BID [facility] Last Admin: 02/06/18 09:59 Dose: 200 mg Cyclobenzaprine HCl (Flexeril -) 10 mg PO Q8H PRN PRN Reason: MUSCLE SPASM Last Admin: 02/06/18 08:46 Dose: 10 mg Insulin Aspart (Novolog Vial Sliding Scale -) 1 vial SQ ACHS [facility]; Protocol Last Admin: 02/06/18 11:59 Dose: 4 units Metoprolol Tartrate (Lopressor -) 25 mg PO BID [facility] Last Admin: 02/06/18 09:59 Dose: 25 mg Oxycodone HCl (Roxicodone -) 5 mg PO Q8H PRN PRN Reason: PAIN 6-10 Last Admin: 02/06/18 14:08 Dose: 5 mg - Objective Vital Signs: Vital Signs Temperature 98.3 F 02/06/18 13:13 Pulse Rate 80 02/06/18 13:13 Respiratory Rate 18 02/06/18 13:13 Blood Pressure 121/70 02/06/18 13:13 O2 Sat by Pulse Oximetry (%) 99 02/06/18 09:00 Constitutional: Yes: Calm Eyes: Yes: Conjunctiva Clear HENT: Yes: Atraumatic Cardiovascular: Yes: S1, S2 Respiratory: Yes: CTA Bilaterally Gastrointestinal: Yes: Soft Genitourinary: Yes: WNL Musculoskeletal: Yes: WNL Edema: No Neurological: Yes: Oriented Psychiatric: Yes: Oriented Labs: CBC, BMP 02/06/18 06:40 02/06/18 06:40 INR, PTT INR 0.99 (0.83-1.09) 02/02/18 13:15 Problem List - Problems (1) Hydronephrosis Code(s): N13.30 - UNSPECIFIED HYDRONEPHROSIS (2) Acute kidney injury Code(s): N17.9 - ACUTE KIDNEY FAILURE, UNSPECIFIED (3) Rhabdomyolysis Code(s): M62.82 - RHABDOMYOLYSIS (4) CAD (coronary artery disease) Code(s): I25.10 - ATHSCL HEART DISEASE OF [place] CORONARY ARTERY W/O ANG PCTRS (5) Hyperlipidemia Code(s): E78.5 - HYPERLIPIDEMIA, UNSPECIFIED (6) Hypertension Code(s): I10 - ESSENTIAL (PRIMARY) HYPERTENSION (7) Lumbar back pain Code(s): M54.5 - LOW BACK PAIN (8) Type 2 diabetes mellitus Code(s): E11.9 - TYPE 2 DIABETES MELLITUS WITHOUT COMPLICATIONS Assessment/Plan Current Medications Generic Name Dose Route Start Last Admin Trade Name Freq PRN Reason Stop Dose Admin Acetaminophen 650 mg 02/02/18 17:48 Tylenol - PO Q4H PRN PAIN LEVEL 1 - 3 Acetaminophen 325 mg 02/05/18 22:14 02/06/18 14:08 Tylenol - PO 325 mg Q8H PRN Administration PAIN 6-10 Aspirin 81 mg 02/03/18 10:00 02/06/18 09:59 Asa - PO 81 mg DAILY [facility] Administration Celecoxib 200 mg 02/03/18 22:00 02/06/18 09:59 Celebrex - PO 200 mg BID [facility] Administration Cyclobenzaprine HCl 10 mg 02/03/18 13:59 02/06/18 08:46 Flexeril - PO 10 mg Q8H PRN Administration MUSCLE SPASM Insulin Aspart 1 vial 02/02/18 22:00 02/06/18 11:59 Novolog Vial Sliding Scale - SQ 4 units ACHS [facility] Administration Protocol Metoprolol Tartrate 25 mg 02/02/18 22:00 02/06/18 09:59 Lopressor - PO 25 mg BID [facility] Administration Oxycodone HCl 5 mg 02/05/18 22:13 02/06/18 14:08 Roxicodone - PO 5 mg Q8H PRN Administration PAIN 6-10 Laboratory Tests 02/03/18 02/05/18 22:00 12:30 Urine Protein Negative Urine Blood Negative CAMILA M-Angel Pending Free [place] LC, Quant Pending Free [place] LC, Quant Pending Free [place]/Lambda Ratio Pending Impression 1. CKD with baseline minesweeping officer about 1.7 2. rhabdo 3. right side hydro 4. DM uncontrolled 5. HTN 6. back pain 7. aicd 8. HLD Plan - repeat labs in am - restart fluids - d/c celebrex - avoid nsaids and nephrotoxins - follow spep - repeat cpk - urology input appreciated, still unclear why he has hydro Dr Ivy
--- NOTE | 2018-02-06 16:46 | CON.ID ---
Consult Consult Specialty:: infectious diseases Referred by:: Reason for Consultation:: r/o osteo of the spine - History of Present Illness Chief Complaint: back pain wiht radiating down the legs History of Present Illness: 57 year old male who has a long history of back pain and readmitted with back pain as patient mentions it was very sever.On admission patient was seen by neurosurgery. In the past patient had multiple infections and one episode he had sepsis and according to him he was diagnosed as osteo of the spine and treated for the same he does not know how long. He also has a defibrillator which it seems was removed once and repositioned because it had got infected He comes in the hospital because of sever back pain patient denies any fever or any other symptoms - History Source History Provided By: Patient Limitations to Obtaining History: No Limitations - Past Medical History Cardio/Vascular: Yes: HTN, Hyperlipdemia Renal/: Yes: Renal Inusuff. No: BPH, Hematuria, Renal Calculi, UTI Musculoskeletal: Yes: Chronic low back pain Endocrine: Yes: Diabetes Mellitus - Alcohol/Substance Use Hx Alcohol Use: Yes (occasion) - Smoking History Smoking history: Never smoked Have you smoked in the past 12 months: No Home Medications - Allergies Allergies/Adverse Reactions: Allergies Allergy/AdvReac Type Severity Reaction Status Date / Time No Known Allergies Allergy Verified 02/02/18 13:00 - Home Medications Home Medications: Ambulatory Orders Cyclobenzaprine HCl [Flexeril -] 10 mg PO TID #21 tablet 11/10/13 Oxycodone HCl/Acetaminophen [Percocet 5-325 mg Tablet -] 1 tab PO Q6H #10 tablet 11/10/13 metFORMIN HCL [Glucophage -] 0 mg PO DAILY 11/10/13 Review of Systems - Review of Systems Constitutional: reports: No Symptoms Eyes: reports: No Symptoms HENT: reports: No Symptoms Neck: reports: No Symptoms Cardiovascular: reports: No Symptoms Respiratory: reports: No Symptoms Gastrointestinal: reports: No Symptoms Musculoskeletal: reports: Back Pain Integumentary: reports: No Symptoms Neurological: reports: No Symptoms Endocrine: reports: No Symptoms Hematology/Lymphatic: reports: No Symptoms Psychiatric: reports: No Symptoms Physical Exam Vital Signs: Vital Signs Temperature 98.3 F 02/06/18 13:13 Pulse Rate 80 02/06/18 13:13 Respiratory Rate 18 02/06/18 13:13 Blood Pressure 121/70 02/06/18 13:13 O2 Sat by Pulse Oximetry (%) 99 02/06/18 09:00 Constitutional: Yes: Well Nourished, Calm, Mild Distress, Obese Eyes: Yes: Conjunctiva Clear HENT: Yes: Atraumatic, Normocephalic Neck: Yes: Supple, Trachea Midline Cardiovascular: Yes: S1, S2 Respiratory: Yes: Regular, CTA Bilaterally Gastrointestinal: Yes: Normal Bowel Sounds, Soft Musculoskeletal: Yes: WNL Extremities: Yes: Other (pain radiating in the lowe ext) Neurological: Yes: Alert, Oriented, Numbness (in legs sometimes) Psychiatric: Yes: Alert, Oriented Labs: CBC, BMP 02/06/18 06:40 02/06/18 06:40 Imaging - Results Chest X-ray: Report Reviewed, Image Reviewed Cat Scan: Report Reviewed, Image Reviewed Ultrasound: Report Reviewed, Image Reviewed Assessment/Plan Problem List - Problems (1) Hydronephrosis Code(s): N13.30 - UNSPECIFIED HYDRONEPHROSIS (2) Acute kidney injury Code(s): N17.9 - ACUTE KIDNEY FAILURE, UNSPECIFIED (3) Rhabdomyolysis Code(s): M62.82 - RHABDOMYOLYSIS (4) CAD (coronary artery disease) Code(s): I25.10 - ATHSCL HEART DISEASE OF [place] CORONARY ARTERY W/O ANG PCTRS (5) Hyperlipidemia Code(s): E78.5 - HYPERLIPIDEMIA, UNSPECIFIED (6) Hypertension Code(s): I10 - ESSENTIAL (PRIMARY) HYPERTENSION (7) Lumbar back pain Code(s): M54.5 - LOW BACK PAIN (8) Type 2 diabetes mellitus Code(s): E11.9 - TYPE 2 DIABETES MELLITUS WITHOUT COMPLICATIONS after looking at the imaging studies i do not see a specific focus also it is very hard to tell if this is an infectious process patients pain could be due to anatomical issues and he has been fine for some time if we become very worried about the problem then it will come down to biopsy or we can get a nuclear scan and see His markers were also not that significant with esr and crp normal plan will not start abx at this time await for other results continue current mgmt rest as per the team
[2018-02-06] MEDS: SODIUM CHLORIDE 1,000 ML IV SCH (17:43)
[2018-02-06] MEDS ORDERED: INSULIN (NOVOLOG) ASPART 100 UNITS/ML 10ML VIAL ONE (21:10)
--- NOTE | 2018-02-06 21:41 | PN ---
Progress Note, Physician - Current Medication List Current Medications: Active Medications Acetaminophen (Tylenol -) 650 mg PO Q4H PRN PRN Reason: PAIN LEVEL 1 - 3 Acetaminophen (Tylenol -) 325 mg PO Q8H PRN PRN Reason: PAIN 6-10 Last Admin: 02/06/18 21:07 Dose: 325 mg Aspirin (Asa -) 81 mg PO DAILY [facility] Last Admin: 02/06/18 09:59 Dose: 81 mg Cyclobenzaprine HCl (Flexeril -) 10 mg PO Q8H PRN PRN Reason: MUSCLE SPASM Last Admin: 02/06/18 17:43 Dose: 10 mg Sodium Chloride (Normal Saline -) 1,000 mls @ 75 mls/hr IV ASDIR [facility] Last Admin: 02/06/18 17:43 Dose: 75 mls/hr Insulin Aspart (Novolog Vial Sliding Scale -) 1 vial SQ ACHS [facility]; Protocol Last Admin: 02/06/18 21:11 Dose: 4 units Metoprolol Tartrate (Lopressor -) 25 mg PO BID [facility] Last Admin: 02/06/18 21:06 Dose: 25 mg Oxycodone HCl (Roxicodone -) 5 mg PO Q8H PRN PRN Reason: PAIN 6-10 Last Admin: 02/06/18 21:06 Dose: 5 mg - Objective Vital Signs: Vital Signs Temperature 97.5 F L 02/06/18 18:49 Pulse Rate 70 02/06/18 18:49 Respiratory Rate 18 02/06/18 18:49 Blood Pressure 121/70 02/06/18 13:13 O2 Sat by Pulse Oximetry (%) 99 02/06/18 09:00 Labs: CBC, BMP 02/06/18 06:40 02/06/18 06:40 INR, PTT INR 0.99 (0.83-1.09) 02/02/18 13:15 Problem List - Problems (1) Acute on chronic renal failure Code(s): N17.9 - ACUTE KIDNEY FAILURE, UNSPECIFIED; N18.9 - CHRONIC KIDNEY DISEASE, UNSPECIFIED (2) Rhabdomyolysis Code(s): M62.82 - RHABDOMYOLYSIS (3) Lumbar back pain Code(s): M54.5 - LOW BACK PAIN (4) CAD (coronary artery disease) Code(s): I25.10 - ATHSCL HEART DISEASE OF [place] CORONARY ARTERY W/O ANG PCTRS (5) Hyperlipidemia Code(s): E78.5 - HYPERLIPIDEMIA, UNSPECIFIED (6) Hypertension Code(s): I10 - ESSENTIAL (PRIMARY) HYPERTENSION (7) Type 2 diabetes mellitus Code(s): E11.9 - TYPE 2 DIABETES MELLITUS WITHOUT COMPLICATIONS
[2018-02-07 00:09] LABS: FREE KAPPA,SERUM 45.3 mg/L (3.3-19.4)
[2018-02-07] MEDS: oxyCODONE HCL 5 MG TABLET PO PRN ×4 (05:29→23:20)
[2018-02-07] MEDS: ACETAMINOPHEN 325 MG TABLET (FP) PO PRN ×3 (05:29→17:47)
[2018-02-07] MEDS: CYCLOBENZAPRINE HCL 10 MG TABLET (FP) PO PRN (05:29)
[2018-02-07] MEDS: SODIUM CHLORIDE 1,000 ML IV SCH ×3 (05:31→22:25)
[2018-02-07] MEDS: INSULIN SLIDING SCALE (NOVOLOG) 1 VIAL SQ SCH ×4 (06:00→22:24)
[2018-02-07 08:31] LABS: ALBUMIN 3.9 g/dl (3.4-5.0); ALK PHOS 98 U/L (45-117); ANION GAP 6 MMOL/L (8-16); BILIRUBIN,TOTAL 0.4 mg/dL (0.2-1); BLOOD UREA NITROGEN 29 mg/dL (7-18); CALCIUM 8.9 mg/dL (8.5-10.1); CHLORIDE 103 mmol/L (98-107); CO2 25 mmol/L (21-32); CREATININE 1.7 mg/dL (0.55-1.3); GLUCOSE,RANDOM 177 mg/dL (74-106); POTASSIUM 4.9 mmol/L (3.5-5.1); SGOT/AST 25 U/L (15-37); SGPT/ALT 40 U/L (13-61); SODIUM 134 mmol/L (136-145); TOT PROT 8.1 g/dl (6.4-8.2)
[2018-02-07] MEDS: ASPIRIN 81 MG CHEWABLE TABLETS PO SCH (10:42)
[2018-02-07] MEDS: METOPROLOL TARTRATE 25 MG TABLET (FP) PO SCH ×2 (10:42→22:24)
--- NOTE | 2018-02-07 13:13 | PN ---
Progress Note, Physician History of Present Illness: stable continues to have pain - Current Medication List Current Medications: Active Medications Acetaminophen (Tylenol -) 650 mg PO Q4H PRN PRN Reason: PAIN LEVEL 1 - 3 Acetaminophen (Tylenol -) 325 mg PO Q6H PRN PRN Reason: PAIN 6-10 Last Admin: 02/07/18 10:44 Dose: 325 mg Aspirin (Asa -) 81 mg PO DAILY [facility] Last Admin: 02/07/18 10:42 Dose: 81 mg Cyclobenzaprine HCl (Flexeril -) 10 mg PO Q8H PRN PRN Reason: MUSCLE SPASM Last Admin: 02/07/18 05:29 Dose: 10 mg Sodium Chloride (Normal Saline -) 1,000 mls @ 75 mls/hr IV ASDIR [facility] Last Admin: 02/07/18 05:31 Dose: 75 mls/hr Insulin Aspart (Novolog Vial Sliding Scale -) 1 vial SQ ACHS [facility]; Protocol Last Admin: 02/07/18 11:33 Dose: 4 units Metoprolol Tartrate (Lopressor -) 25 mg PO BID [facility] Last Admin: 02/07/18 10:42 Dose: 25 mg Oxycodone HCl (Roxicodone -) 10 mg PO Q6H PRN PRN Reason: PAIN 6-10 Last Admin: 02/07/18 10:42 Dose: 10 mg - Objective Vital Signs: Vital Signs Temperature 97.5 F L 02/07/18 09:00 Pulse Rate 73 02/07/18 09:00 Respiratory Rate 18 02/07/18 09:00 Blood Pressure 152/95 02/07/18 09:00 O2 Sat by Pulse Oximetry (%) 99 02/06/18 09:00 Constitutional: Yes: No Distress, Calm Neck: Yes: Supple Cardiovascular: Yes: Regular Rate and Rhythm Respiratory: Yes: Regular, CTA Bilaterally Gastrointestinal: Yes: Normal Bowel Sounds, Soft Musculoskeletal: Yes: Back Pain Extremities: Yes: WNL Labs: CBC, BMP 02/06/18 06:40 02/07/18 07:08 INR, PTT INR 0.99 (0.83-1.09) 02/02/18 13:15 Assessment/Plan Problem List - Problems (1) Hydronephrosis Code(s): N13.30 - UNSPECIFIED HYDRONEPHROSIS (2) Acute kidney injury Code(s): N17.9 - ACUTE KIDNEY FAILURE, UNSPECIFIED (3) Rhabdomyolysis Code(s): M62.82 - RHABDOMYOLYSIS (4) CAD (coronary artery disease) Code(s): I25.10 - ATHSCL HEART DISEASE OF [place] CORONARY ARTERY W/O ANG PCTRS (5) Hyperlipidemia Code(s): E78.5 - HYPERLIPIDEMIA, UNSPECIFIED (6) Hypertension Code(s): I10 - ESSENTIAL (PRIMARY) HYPERTENSION (7) Lumbar back pain Code(s): M54.5 - LOW BACK PAIN (8) Type 2 diabetes mellitus Code(s): E11.9 - TYPE 2 DIABETES MELLITUS WITHOUT COMPLICATIONS plan continue to monitor await for all the work up rest as per the teams
--- NOTE | 2018-02-07 13:41 | CONSULT ---
Consultation: REQUESTING PROVIDER: CONSULT REQUEST: We have been asked to medically evaluate this patient for High Free light chain ratio HISTORY OF PRESENT ILLNESS: 57 yo M with PMHx of CAD, [place], HTN, Hyperlipidemia,Type 2 DM,CKD who comes to the ED today complaining of low back pain. He has chronic pain in his back but says it has been worsening over the last 2-3 days. The pain is located in the middle and right side of his low back and radiates to the anterior right thigh. He also complains of numbness in his right thigh and soreness in both lower legs for the last 2-3 days. He denies urinary/bowel incontinence, fever, chills , hematuria, dysuria, urinary frequency. Found to be in acute renal failure. Calcium wnl . No anemia. No history of hematologic or malignancy issues PAST MEDICAL HISTORY: CAD,[place],HTN,Hyperlipidemia,Type 2 DM,CKD, osteomyelitis of spine,Chronic back pain PAST SURGICAL HISTORY: Coronary PCI with stent,AICD Social History: FAMILY HISTORY: REVIEW OF SYSTEMS: CONSTITUTIONAL: Absent: fever, chills, diaphoresis, generalized weakness, malaise, loss of appetite, weight change HEENT: Absent: rhinorrhea, nasal congestion, throat pain, throat swelling, difficulty swallowing, mouth swelling, ear pain, eye pain, visual changes CARDIOVASCULAR: Absent: chest pain, syncope, palpitations, irregular heart rate, lightheadedness , peripheral edema RESPIRATORY: Absent: cough, shortness of breath, dyspnea with exertion, orthopnea, wheezing, stridor, hemoptysis GASTROINTESTINAL: Absent: abdominal pain, abdominal distension, nausea, vomiting, diarrhea, constipation, melena, hematochezia GENITOURINARY: Absent: dysuria, frequency, urgency, hesitancy, hematuria, flank pain, genital pain MUSCULOSKELETAL: back pain Absent: myalgia, arthralgia, joint swelling, , neck pain SKIN: Absent: rash, itching, pallor HEMATOLOGIC/IMMUNOLOGIC: Absent: easy bleeding, easy bruising, lymphadenopathy, frequent infections ENDOCRINE: Absent: unexplained weight gain, unexplained weight loss, heat intolerance, cold intolerance NEUROLOGIC: Absent: headache, focal weakness or paresthesias, dizziness, unsteady gait, seizure, mental status changes, bladder or bowel incontinence PSYCHIATRIC: Absent: anxiety, depression, suicidal or homicidal ideation, hallucinations. PHYSICAL EXAMINATION Vital Signs - 24 hr 02/06/18 02/07/18 02/07/18 18:49 02:00 06:00 Temperature 97.5 F L 97.6 F 98.1 F Pulse Rate 70 64 69 Respiratory 18 18 18 Rate Blood Pressure 141/78 170/91 02/07/18 09:00 Temperature 97.5 F L Pulse Rate 73 Respiratory 18 Rate Blood Pressure 152/95 GENERAL: Awake, alert, and fully oriented, in no acute distress. HEAD: Normal with no signs of trauma. EYES: Pupils equal, round and reactive to light, extraocular movements intact, sclerae anicteric, conjunctivae clear. EARS, NOSE, THROAT: Ears normal, nares patent, oropharynx clear without exudates. Moist mucous membranes. NECK: Normal range of motion, supple without lymphadenopathy, JVD, or masses. LUNGS: Breath sounds equal, clear to auscultation bilaterally. No wheezes, and no crackles. No accessory muscle use. HEART: Regular rate and rhythm, normal S1 and S2 without murmur, rub or gallop. ABDOMEN: Soft, nontender, not distended, normoactive bowel sounds, no guarding, no rebound, no masses. No hepatomegaly or splenomegaly. MUSCULOSKELETAL: Decreased flexion of right hip secondary to back pain. (+) straight leg raise on right. (+) right lumbar paraspinal tenderness. No CVA tenderness. UPPER EXTREMITIES: 2+ pulses, warm, well-perfused. No cyanosis. No clubbing. No peripheral edema. LOWER EXTREMITIES: 2+ pulses, warm, well-perfused. No calf tenderness. No peripheral edema. NEUROLOGICAL: Cranial nerves II-XII intact. Normal speech. Sensation intact. Strength 5/5 in RUE/LUE/LLE and 4/5 in RLE. DTRs 2+ and symmetric. Gait not observed. PSYCHIATRIC: Cooperative. Good eye contact. Appropriate mood and affect. SKIN: Warm, dry, normal turgor, no rashes or lesions noted, normal capillary refill. Laboratory Results - last 24 hr 02/05/18 02/06/18 02/06/18 12:30 17:40 21:09 Sodium Potassium Chloride Carbon Dioxide Anion Gap BUN Creatinine Creat Clearance w eGFR POC Glucometer 224 203 Random Glucose Calcium Total Bilirubin AST ALT Alkaline Phosphatase Creatine Kinase Creatine Kinase Index CK-MB (CK-2) Total Protein Albumin Free [place] LC, Quant 45.3 H Free Lambda LC, Quant 26.1 Free [place]/Lambda Ratio 1.74 H 02/07/18 02/07/18 02/07/18 05:25 07:08 11:30 Sodium 134 L Potassium 4.9 Chloride 103 Carbon Dioxide 25 Anion Gap 6 L BUN 29 H Creatinine 1.7 H Creat Clearance w eGFR 41.46 POC Glucometer 180 226 Random Glucose 177 H Calcium 8.9 Total Bilirubin 0.4 AST 25 ALT 40 Alkaline Phosphatase 98 Creatine Kinase 634 H Creatine Kinase Index 1.3 CK-MB (CK-2) 8.3 H Total Protein 8.1 Albumin 3.9 Free [place] LC, Quant Free Lambda LC, Quant Free [place]/Lambda Ratio Active Medications Generic Name Dose Route Start Last Admin Trade Name Freq PRN Reason Stop Dose Admin Acetaminophen 650 mg 02/02/18 17:48 Tylenol - PO Q4H PRN PAIN LEVEL 1 - 3 Acetaminophen 325 mg 02/07/18 09:58 02/07/18 10:44 Tylenol - PO 325 mg Q6H PRN Administration PAIN 6-10 Aspirin 81 mg 02/03/18 10:00 02/07/18 10:42 Asa - PO 81 mg DAILY KIRK Administration Cyclobenzaprine HCl 10 mg 02/03/18 13:59 02/07/18 05:29 Flexeril - PO 10 mg Q8H PRN Administration MUSCLE SPASM Sodium Chloride 1,000 mls @ 75 mls/hr 02/06/18 16:45 02/07/18 05:31 Normal Saline - IV 75 mls/hr ASDIR KIRK Administration Insulin Aspart 1 vial 02/02/18 22:00 02/07/18 11:33 Novolog Vial Sliding Scale - SQ 4 units ACHS KIRK Administration Protocol Metoprolol Tartrate 25 mg 02/02/18 22:00 02/07/18 10:42 Lopressor - PO 25 mg BID KIRK Administration Oxycodone HCl 10 mg 02/07/18 09:57 02/07/18 10:42 Roxicodone - PO 10 mg Q6H PRN Administration PAIN 6-10 ASSESSMENT/PLAN: 57 yo M with PMHx of CAD, [place], HTN, Hyperlipidemia,Type 2 DM,CKD who comes to the ED today complaining of low back pain. Dispo: We will continue to follow the patient. Thank you for this consultative opportunity. Problem List - Problems (1) Elevated serum immunoglobulin free light chain level Assessment/Plan: Clinical suspicion for MM. * Send SPEP and UPEP, immunofixation. * Urine free kappa/Lambda * CT thorax ordered to r/o bone lytic lesions. * Further recommendation pending result (2) Acute on chronic renal failure (3) CAD (coronary artery disease) Code(s): I25.10 - ATHSCL HEART DISEASE OF [place] CORONARY ARTERY W/O ANG PCTRS Qualifiers: Coronary Disease-Associated Artery/Lesion type: [place] artery [place] vs. transplanted heart: [place] heart Associated angina: angina presence unspecified Qualified Code(s): I25.10 - Atherosclerotic heart disease of [place] coronary artery without angina pectoris (4) Hyperlipidemia (5) Type 2 diabetes mellitus Visit type - Emergency Visit Emergency Visit: Yes ED Registration Date: 02/02/18 Care time: The patient presented to the Emergency Department on the above date and was hospitalized for further evaluation of their emergent condition. - New Patient This patient is new to me today: Yes Date on this admission: 02/07/18 - Critical Care Critical Care patient: No
--- NOTE | 2018-02-07 16:11 | PN ---
Progress Note, Physician History of Present Illness: Pt seen and examined at bedside. He is awake and alert. He complains of back pain. He denies shortness of breath. - Current Medication List Current Medications: Active Medications Acetaminophen (Tylenol -) 650 mg PO Q4H PRN PRN Reason: PAIN LEVEL 1 - 3 Acetaminophen (Tylenol -) 325 mg PO Q6H PRN PRN Reason: PAIN 6-10 Last Admin: 02/07/18 10:44 Dose: 325 mg Aspirin (Asa -) 81 mg PO DAILY [facility] Last Admin: 02/07/18 10:42 Dose: 81 mg Cyclobenzaprine HCl (Flexeril -) 10 mg PO Q8H PRN PRN Reason: MUSCLE SPASM Last Admin: 02/07/18 05:29 Dose: 10 mg Sodium Chloride (Normal Saline -) 1,000 mls @ 75 mls/hr IV ASDIR [facility] Last Admin: 02/07/18 05:31 Dose: 75 mls/hr Insulin Aspart (Novolog Vial Sliding Scale -) 1 vial SQ ACHS [facility]; Protocol Last Admin: 02/07/18 11:33 Dose: 4 units Metoprolol Tartrate (Lopressor -) 25 mg PO BID [facility] Last Admin: 02/07/18 10:42 Dose: 25 mg Oxycodone HCl (Roxicodone -) 10 mg PO Q6H PRN PRN Reason: PAIN 6-10 Last Admin: 02/07/18 10:42 Dose: 10 mg - Objective Vital Signs: Vital Signs Temperature 97.8 F 02/07/18 14:56 Pulse Rate 77 02/07/18 14:56 Respiratory Rate 18 02/07/18 14:56 Blood Pressure 138/51 L 02/07/18 14:56 O2 Sat by Pulse Oximetry (%) 99 02/06/18 09:00 Constitutional: Yes: Calm Eyes: Yes: Conjunctiva Clear HENT: Yes: Atraumatic Neck: Yes: Supple Cardiovascular: Yes: S1, S2 Respiratory: Yes: CTA Bilaterally Gastrointestinal: Yes: Soft Genitourinary: Yes: WNL Musculoskeletal: Yes: Back Pain Edema: No Neurological: Yes: Oriented Psychiatric: Yes: Oriented Labs: CBC, BMP 02/06/18 06:40 02/07/18 07:08 INR, PTT INR 0.99 (0.83-1.09) 02/02/18 13:15 Problem List - Problems (1) Hydronephrosis Code(s): N13.30 - UNSPECIFIED HYDRONEPHROSIS (2) Acute kidney injury Code(s): N17.9 - ACUTE KIDNEY FAILURE, UNSPECIFIED (3) Rhabdomyolysis Code(s): M62.82 - RHABDOMYOLYSIS (4) CAD (coronary artery disease) Code(s): I25.10 - ATHSCL HEART DISEASE OF [place] CORONARY ARTERY W/O ANG PCTRS Qualifiers: Coronary Disease-Associated Artery/Lesion type: [place] artery [place] vs. transplanted heart: [place] heart Associated angina: angina presence unspecified Qualified Code(s): I25.10 - Atherosclerotic heart disease of [place] coronary artery without angina pectoris (5) Hyperlipidemia Code(s): E78.5 - HYPERLIPIDEMIA, UNSPECIFIED Qualifiers: Hyperlipidemia type: unspecified Qualified Code(s): E78.5 - Hyperlipidemia , unspecified (6) Hypertension Code(s): I10 - ESSENTIAL (PRIMARY) HYPERTENSION (7) Lumbar back pain Code(s): M54.5 - LOW BACK PAIN (8) Type 2 diabetes mellitus Code(s): E11.9 - TYPE 2 DIABETES MELLITUS WITHOUT COMPLICATIONS Qualifiers: Diabetes mellitus terminal press operator insulin use: without terminal press operator use Diabetes mellitus complication status: with kidney complications Chronic kidney disease stage: stage 2 (mild) Assessment/Plan Current Medications Generic Name Dose Route Start Last Admin Trade Name Freq PRN Reason Stop Dose Admin Acetaminophen 650 mg 02/02/18 17:48 Tylenol - PO Q4H PRN PAIN LEVEL 1 - 3 Acetaminophen 325 mg 02/07/18 09:58 02/07/18 10:44 Tylenol - PO 325 mg Q6H PRN Administration PAIN 6-10 Aspirin 81 mg 02/03/18 10:00 02/07/18 10:42 Asa - PO 81 mg DAILY KIRK Administration Cyclobenzaprine HCl 10 mg 02/03/18 13:59 02/07/18 05:29 Flexeril - PO 10 mg Q8H PRN Administration MUSCLE SPASM Sodium Chloride 1,000 mls @ 75 mls/hr 02/06/18 16:45 02/07/18 05:31 Normal Saline - IV 75 mls/hr ASDIR KIRK Administration Insulin Aspart 1 vial 02/02/18 22:00 02/07/18 11:33 Novolog Vial Sliding Scale - SQ 4 units ACHS [facility] Administration Protocol Metoprolol Tartrate 25 mg 02/02/18 22:00 02/07/18 10:42 Lopressor - PO 25 mg BID KIRK Administration Oxycodone HCl 10 mg 02/07/18 09:57 02/07/18 10:42 Roxicodone - PO 10 mg Q6H PRN Administration PAIN 6-10 Laboratory Tests 02/05/18 02/07/18 02/07/18 12:30 15:15 15:15 U Free [place] Light Ch Pending U Free Lambda Light Ch Pending U Free [place]/Lambda 24 Pending IgG Pending IgA Pending IgM Pending CAMILA & SPEP Interp Pending CAMILA M-Angel Pending Free [place] LC, Quant 45.3 H Free Lambda LC, Quant 26.1 Free [place]/Lambda Ratio 1.74 H Impression 1. 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 rhabdo 3. right side hydro 4. DM uncontrolled 5. HTN 6. back pain 7. aicd 8. HLD Plan - cont with fluids - renal function improving, baseline is about 1.67 - avoid nsaids please - kappa is elevated, hematology workup in progress - will decrease rate of fluids - monitor cpk - statin on hold - urology input appreciated, still unclear why he has hydro Dr Ivy
[2018-02-07 16:16] VITALS: BMI 33.9
--- NOTE | 2018-02-07 16:50 | PN ---
Teaching Attending Note Name of Resident: Poncho Benítez ATTENDING PHYSICIAN STATEMENT I saw and evaluated the patient. I reviewed the resident's note and discussed the case with the resident. I agree with the resident's findings and plan as documented. SUBJECTIVE: Patient seen and examined Agree with consult as outlined Mild increase in free kappa/free lambdal light chains in serum . For protein studies, skeletal survery and CT of thoracic spine. OBJECTIVE: ASSESSMENT AND PLAN:
[2018-02-07] MEDS ORDERED: INSULIN (NOVOLOG) ASPART 100 UNITS/ML 10ML VIAL ONE ×2 (17:23→22:09)
--- NOTE | 2018-02-07 23:30 | PN ---
Progress Note, Physician - Current Medication List Current Medications: Active Medications Acetaminophen (Tylenol -) 650 mg PO Q4H PRN PRN Reason: PAIN LEVEL 1 - 3 Acetaminophen (Tylenol -) 325 mg PO Q6H PRN PRN Reason: PAIN 6-10 Last Admin: 02/07/18 17:47 Dose: 325 mg Aspirin (Asa -) 81 mg PO DAILY [facility] Last Admin: 02/07/18 10:42 Dose: 81 mg Cyclobenzaprine HCl (Flexeril -) 10 mg PO Q8H PRN PRN Reason: MUSCLE SPASM Last Admin: 02/07/18 05:29 Dose: 10 mg Sodium Chloride (Normal Saline -) 1,000 mls @ 50 mls/hr IV ASDIR [facility] Last Admin: 02/07/18 22:25 Dose: 50 mls/hr Insulin Aspart (Novolog Vial Sliding Scale -) 1 vial SQ ACHS [facility]; Protocol Last Admin: 02/07/18 22:24 Dose: 4 units Metoprolol Tartrate (Lopressor -) 25 mg PO BID [facility] Last Admin: 02/07/18 22:24 Dose: 25 mg Oxycodone HCl (Roxicodone -) 10 mg PO Q6H PRN PRN Reason: PAIN 6-10 Last Admin: 02/07/18 17:46 Dose: 10 mg - Objective Vital Signs: Vital Signs Temperature 98.0 F 02/07/18 18:00 Pulse Rate 69 02/07/18 18:00 Respiratory Rate 19 02/07/18 18:00 Blood Pressure 145/75 02/07/18 18:00 O2 Sat by Pulse Oximetry (%) 99 02/07/18 09:00 Labs: CBC, BMP 02/06/18 06:40 02/07/18 07:08 INR, PTT INR 0.99 (0.83-1.09) 02/02/18 13:15 Problem List - Problems (1) Acute on chronic renal failure Code(s): N17.9 - ACUTE KIDNEY FAILURE, UNSPECIFIED; N18.9 - CHRONIC KIDNEY DISEASE, UNSPECIFIED Qualifiers: Chronic kidney disease stage: stage 2 (mild) (2) Rhabdomyolysis Code(s): M62.82 - RHABDOMYOLYSIS (3) Lumbar back pain Code(s): M54.5 - LOW BACK PAIN (4) CAD (coronary artery disease) Code(s): I25.10 - ATHSCL HEART DISEASE OF [place] CORONARY ARTERY W/O ANG PCTRS Qualifiers: Coronary Disease-Associated Artery/Lesion type: [place] artery [place] vs. transplanted heart: [place] heart Associated angina: angina presence unspecified Qualified Code(s): I25.10 - Atherosclerotic heart disease of [place] coronary artery without angina pectoris (5) Hyperlipidemia Code(s): E78.5 - HYPERLIPIDEMIA, UNSPECIFIED Qualifiers: Hyperlipidemia type: unspecified Qualified Code(s): E78.5 - Hyperlipidemia , unspecified (6) Hypertension Code(s): I10 - ESSENTIAL (PRIMARY) HYPERTENSION (7) Type 2 diabetes mellitus Code(s): E11.9 - TYPE 2 DIABETES MELLITUS WITHOUT COMPLICATIONS Qualifiers: Diabetes mellitus intermediate project manager insulin use: without intermediate project manager use Diabetes mellitus complication status: with kidney complications Chronic kidney disease stage: stage 2 (mild)
[2018-02-08] MEDS: CYCLOBENZAPRINE HCL 10 MG TABLET (FP) PO PRN (05:19)
[2018-02-08] MEDS: oxyCODONE HCL 5 MG TABLET PO PRN ×4 (05:19→23:58)
[2018-02-08] MEDS: INSULIN SLIDING SCALE (NOVOLOG) 1 VIAL SQ SCH ×4 (06:36→22:14)
[2018-02-08 09:07] LABS: ALBUMIN 3.6 g/dl (3.4-5.0); ALK PHOS 87 U/L (45-117); ANION GAP 7 MMOL/L (8-16); BILIRUBIN,TOTAL 0.4 mg/dL (0.2-1); BLOOD UREA NITROGEN 28 mg/dL (7-18); CALCIUM 8.8 mg/dL (8.5-10.1); CHLORIDE 101 mmol/L (98-107); CO2 26 mmol/L (21-32); CREATININE 1.9 mg/dL (0.55-1.3); GLUCOSE,RANDOM 208 mg/dL (74-106); POTASSIUM 5.1 mmol/L (3.5-5.1); SGOT/AST 19 U/L (15-37); SGPT/ALT 36 U/L (13-61); SODIUM 134 mmol/L (136-145); TOT PROT 7.5 g/dl (6.4-8.2)
[2018-02-08] MEDS: METOPROLOL TARTRATE 25 MG TABLET (FP) PO SCH ×2 (10:42→22:14)
[2018-02-08] MEDS: ASPIRIN 81 MG CHEWABLE TABLETS PO SCH (10:42)
--- NOTE | 2018-02-08 11:53 | PN ---
Progress Note (short form) - Note Progress Note: RENAL Pt is awake and alert comfortable c/o pain in right knee and lower back Last Vital Signs Temp Pulse Resp BP Pulse Ox 98.1 F 84 20 101/84 99 02/08/18 09:32 02/08/18 09:32 02/08/18 09:32 02/08/18 09:32 02/07/18 21:00 lungs clear cvs s1s2 rr abd soft obese ext no edema neuro a+ox3 CBC, BMP 02/06/18 06:40 02/08/18 07:00 Current Medications Generic Name Dose Route Start Last Admin Trade Name Freq PRN Reason Stop Dose Admin Acetaminophen 650 mg 02/02/18 17:48 Tylenol - PO Q4H PRN PAIN LEVEL 1 - 3 Acetaminophen 325 mg 02/07/18 09:58 02/07/18 17:47 Tylenol - PO 325 mg Q6H PRN Administration PAIN 6-10 Aspirin 81 mg 02/03/18 10:00 02/08/18 10:42 Asa - PO 81 mg DAILY [facility] Administration Cyclobenzaprine HCl 10 mg 02/03/18 13:59 02/08/18 05:19 Flexeril - PO 10 mg Q8H PRN Administration MUSCLE SPASM Sodium Chloride 1,000 mls @ 50 mls/hr 02/07/18 16:12 02/07/18 22:25 Normal Saline - IV 50 mls/hr ASDIR [facility] Administration Insulin Aspart 1 vial 02/02/18 22:00 02/08/18 06:36 Novolog Vial Sliding Scale - SQ 2 units ACHS [facility] Administration Protocol Metoprolol Tartrate 25 mg 02/02/18 22:00 02/08/18 10:42 Lopressor - PO 25 mg BID KIRK Administration Oxycodone HCl 10 mg 02/07/18 09:57 02/08/18 11:12 Roxicodone - PO 10 mg Q6H PRN Administration PAIN 6-10 Impression 1. 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 rhabdo 3. right side hydro 4. DM uncontrolled 5. HTN 6. back pain 7. aicd 8. 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 May have some degree of retention from narcotic analgesia MV
--- NOTE | 2018-02-08 15:58 | PN ---
Progress Note, Physician History of Present Illness: Pt c/o lower back pain. Remains afebrile, without distress. No other complaints. - Current Medication List Current Medications: Active Medications Acetaminophen (Tylenol -) 650 mg PO Q4H PRN PRN Reason: PAIN LEVEL 1 - 3 Acetaminophen (Tylenol -) 325 mg PO Q6H PRN PRN Reason: PAIN 6-10 Last Admin: 02/07/18 17:47 Dose: 325 mg Aspirin (Asa -) 81 mg PO DAILY [facility] Last Admin: 02/08/18 10:42 Dose: 81 mg Cyclobenzaprine HCl (Flexeril -) 10 mg PO Q8H PRN PRN Reason: MUSCLE SPASM Last Admin: 02/08/18 05:19 Dose: 10 mg Sodium Chloride (Normal Saline -) 1,000 mls @ 50 mls/hr IV ASDIR [facility] Last Admin: 02/07/18 22:25 Dose: 50 mls/hr Insulin Aspart (Novolog Vial Sliding Scale -) 1 vial SQ ACHS [facility]; Protocol Last Admin: 02/08/18 12:14 Dose: 8 units Metoprolol Tartrate (Lopressor -) 25 mg PO BID [facility] Last Admin: 02/08/18 10:42 Dose: 25 mg Oxycodone HCl (Roxicodone -) 10 mg PO Q6H PRN PRN Reason: PAIN 6-10 Last Admin: 02/08/18 11:12 Dose: 10 mg - Objective Vital Signs: Vital Signs Temperature 97.6 F 02/08/18 13:13 Pulse Rate 76 02/08/18 13:13 Respiratory Rate 18 02/08/18 13:13 Blood Pressure 144/83 02/08/18 13:13 O2 Sat by Pulse Oximetry (%) 97 02/08/18 09:00 Constitutional: Yes: No Distress, Calm Cardiovascular: Yes: Regular Rate and Rhythm Respiratory: Yes: Regular Gastrointestinal: Yes: Normal Bowel Sounds, Soft Integumentary: Yes: WNL Neurological: Yes: Alert, Oriented Labs: CBC, BMP 02/06/18 06:40 02/08/18 07:00 INR, PTT INR 0.99 (0.83-1.09) 02/02/18 13:15 - ....Imaging Cat Scan: Report Reviewed Problem List - Problems (1) Acute kidney injury Code(s): N17.9 - ACUTE KIDNEY FAILURE, UNSPECIFIED (2) Hydronephrosis Code(s): N13.30 - UNSPECIFIED HYDRONEPHROSIS (3) CAD (coronary artery disease) Code(s): I25.10 - ATHSCL HEART DISEASE OF [place] CORONARY ARTERY W/O ANG PCTRS Qualifiers: Coronary Disease-Associated Artery/Lesion type: [place] artery [place] vs. transplanted heart: [place] heart Associated angina: angina presence unspecified Qualified Code(s): I25.10 - Atherosclerotic heart disease of [place] coronary artery without angina pectoris (4) Hyperlipidemia Code(s): E78.5 - HYPERLIPIDEMIA, UNSPECIFIED Qualifiers: Hyperlipidemia type: unspecified Qualified Code(s): E78.5 - Hyperlipidemia , unspecified (5) Hypertension Code(s): I10 - ESSENTIAL (PRIMARY) HYPERTENSION (6) Lumbar back pain Code(s): M54.5 - LOW BACK PAIN (7) Type 2 diabetes mellitus Code(s): E11.9 - TYPE 2 DIABETES MELLITUS WITHOUT COMPLICATIONS Qualifiers: Diabetes mellitus correction insulin use: without correction use Diabetes mellitus complication status: with kidney complications Chronic kidney disease stage: stage 2 (mild) Assessment/Plan Lower Back pain - pt remains afebrile, without distress - imaging results noted - wbc normal, afebrile - pt without obvious signs of infection, cont. monitor off antibiotics
[2018-02-08] MEDS: SODIUM CHLORIDE 1,000 ML IV SCH (16:50)
--- NOTE | 2018-02-08 23:04 | PN ---
Progress Note, Physician - Current Medication List Current Medications: Active Medications Acetaminophen (Tylenol -) 650 mg PO Q4H PRN PRN Reason: PAIN LEVEL 1 - 3 Acetaminophen (Tylenol -) 325 mg PO Q6H PRN PRN Reason: PAIN 6-10 Last Admin: 02/07/18 17:47 Dose: 325 mg Aspirin (Asa -) 81 mg PO DAILY [facility] Last Admin: 02/08/18 10:42 Dose: 81 mg Cyclobenzaprine HCl (Flexeril -) 10 mg PO Q8H PRN PRN Reason: MUSCLE SPASM Last Admin: 02/08/18 05:19 Dose: 10 mg Sodium Chloride (Normal Saline -) 1,000 mls @ 50 mls/hr IV ASDIR [facility] Last Admin: 02/08/18 16:50 Dose: 50 mls/hr Insulin Aspart (Novolog Vial Sliding Scale -) 1 vial SQ ACHS [facility]; Protocol Last Admin: 02/08/18 22:14 Dose: 4 units Metoprolol Tartrate (Lopressor -) 25 mg PO BID [facility] Last Admin: 02/08/18 22:14 Dose: 25 mg Oxycodone HCl (Roxicodone -) 10 mg PO Q6H PRN PRN Reason: PAIN 6-10 Last Admin: 02/08/18 18:05 Dose: 10 mg - Objective Vital Signs: Vital Signs Temperature 97.8 F 02/08/18 18:14 Pulse Rate 103 H 02/08/18 18:14 Respiratory Rate 18 02/08/18 18:14 Blood Pressure 139/74 02/08/18 18:14 O2 Sat by Pulse Oximetry (%) 97 02/08/18 09:00 Labs: CBC, BMP 02/06/18 06:40 02/08/18 07:00 INR, PTT INR 0.99 (0.83-1.09) 02/02/18 13:15 Problem List - Problems (1) Acute on chronic renal failure Code(s): N17.9 - ACUTE KIDNEY FAILURE, UNSPECIFIED; N18.9 - CHRONIC KIDNEY DISEASE, UNSPECIFIED Qualifiers: Chronic kidney disease stage: stage 2 (mild) (2) Rhabdomyolysis Code(s): M62.82 - RHABDOMYOLYSIS (3) Lumbar back pain Code(s): M54.5 - LOW BACK PAIN (4) CAD (coronary artery disease) Code(s): I25.10 - ATHSCL HEART DISEASE OF [place] CORONARY ARTERY W/O ANG PCTRS Qualifiers: Coronary Disease-Associated Artery/Lesion type: [place] artery [place] vs. transplanted heart: [place] heart Associated angina: angina presence unspecified Qualified Code(s): I25.10 - Atherosclerotic heart disease of [place] coronary artery without angina pectoris (5) Hyperlipidemia Code(s): E78.5 - HYPERLIPIDEMIA, UNSPECIFIED Qualifiers: Hyperlipidemia type: unspecified Qualified Code(s): E78.5 - Hyperlipidemia , unspecified (6) Hypertension Code(s): I10 - ESSENTIAL (PRIMARY) HYPERTENSION (7) Type 2 diabetes mellitus Code(s): E11.9 - TYPE 2 DIABETES MELLITUS WITHOUT COMPLICATIONS Qualifiers: Diabetes mellitus senior living insulin use: without termite treater helper use Diabetes mellitus complication status: with kidney complications Chronic kidney disease stage: stage 2 (mild)
[2018-02-09] MEDS: oxyCODONE HCL 5 MG TABLET PO PRN ×3 (06:30→18:31)
[2018-02-09] MEDS: INSULIN SLIDING SCALE (NOVOLOG) 1 VIAL SQ SCH ×4 (06:31→22:27)
[2018-02-09] MEDS: ASPIRIN 81 MG CHEWABLE TABLETS PO SCH (09:25)
[2018-02-09] MEDS: METOPROLOL TARTRATE 25 MG TABLET (FP) PO SCH ×2 (09:25→22:26)
[2018-02-09] MEDS: CYCLOBENZAPRINE HCL 10 MG TABLET (FP) PO PRN (09:28)
--- NOTE | 2018-02-09 10:53 | PN ---
Progress Note (short form) - Note Progress Note: RENAL Pt is awake and alert comfortable c/o pain in right knee and lower back Last Vital Signs Temp Pulse Resp BP Pulse Ox 97.8 F 80 18 160/88 99 02/09/18 09:25 02/09/18 09:25 02/09/18 09:25 02/09/18 09:25 02/09/18 09:33 lungs clear cvs s1s2 rr abd soft obese ext no edema neuro a+ox3 CBC, BMP 02/06/18 06:40 02/08/18 07:00 Current Medications Generic Name Dose Route Start Last Admin Trade Name Freq PRN Reason Stop Dose Admin Acetaminophen 650 mg 02/02/18 17:48 Tylenol - PO Q4H PRN PAIN LEVEL 1 - 3 Acetaminophen 325 mg 02/07/18 09:58 02/07/18 17:47 Tylenol - PO 325 mg Q6H PRN Administration PAIN 6-10 Aspirin 81 mg 02/03/18 10:00 02/09/18 09:25 Asa - PO 81 mg DAILY KIRK Administration Cyclobenzaprine HCl 10 mg 02/03/18 13:59 02/09/18 09:28 Flexeril - PO 10 mg Q8H PRN Administration MUSCLE SPASM Sodium Chloride 1,000 mls @ 50 mls/hr 02/07/18 16:12 02/08/18 16:50 Normal Saline - IV 50 mls/hr ASDIR KIRK Administration Insulin Aspart 1 vial 02/02/18 22:00 02/09/18 06:31 Novolog Vial Sliding Scale - SQ 4 units ACHS KIRK Administration Protocol Metoprolol Tartrate 25 mg 02/02/18 22:00 02/09/18 09:25 Lopressor - PO 25 mg BID KIRK Administration Oxycodone HCl 10 mg 02/07/18 09:57 02/09/18 06:30 Roxicodone - PO 10 mg Q6H PRN Administration PAIN 6-10 Impression 1. CKD with baseline heat regulator about 1.7- MGUS ? 2. rhabdo 3. right side hydro 4. DM uncontrolled 5. HTN 6. back pain 7. aicd 8. HLD Plan bladder scan not yet done. I spoke to nurse will have labs repeated today increase metoprolol MV
[2018-02-09] MEDS: ACETAMINOPHEN 325 MG TABLET (FP) PO PRN ×2 (12:32→18:31)
[2018-02-09] MEDS: SODIUM CHLORIDE 1,000 ML IV SCH (12:32)
[2018-02-09 12:44] LABS: ANION GAP 9 MMOL/L (8-16); BLOOD UREA NITROGEN 29 mg/dL (7-18); CALCIUM 9.1 mg/dL (8.5-10.1); CHLORIDE 102 mmol/L (98-107); CO2 25 mmol/L (21-32); CREATININE 1.7 mg/dL (0.55-1.3); GLUCOSE,RANDOM 229 mg/dL (74-106); POTASSIUM 5.2 mmol/L (3.5-5.1); SODIUM 136 mmol/L (136-145)
--- NOTE | 2018-02-09 16:06 | PN ---
Progress Note, Physician History of Present Illness: Pt alert, afebrile, without new complaints. - Current Medication List Current Medications: Active Medications Acetaminophen (Tylenol -) 650 mg PO Q4H PRN PRN Reason: PAIN LEVEL 1 - 3 Last Admin: 02/09/18 12:32 Dose: 650 mg Acetaminophen (Tylenol -) 325 mg PO Q6H PRN PRN Reason: PAIN 6-10 Last Admin: 02/07/18 17:47 Dose: 325 mg Aspirin (Asa -) 81 mg PO DAILY [facility] Last Admin: 02/09/18 09:25 Dose: 81 mg Cyclobenzaprine HCl (Flexeril -) 10 mg PO Q8H PRN PRN Reason: MUSCLE SPASM Last Admin: 02/09/18 09:28 Dose: 10 mg Insulin Aspart (Novolog Vial Sliding Scale -) 1 vial SQ ACHS [facility]; Protocol Last Admin: 02/09/18 11:33 Dose: 4 units Metoprolol Tartrate (Lopressor -) 50 mg PO BID [facility]CLUD[facility] Oxycodone HCl (Roxicodone -) 10 mg PO Q6H PRN PRN Reason: PAIN 6-10 Last Admin: 02/09/18 12:31 Dose: 10 mg - Objective Vital Signs: Vital Signs Temperature 98.7 F 02/09/18 15:09 Pulse Rate 75 02/09/18 14:01 Respiratory Rate 18 02/09/18 14:01 Blood Pressure 141/72 02/09/18 14:01 O2 Sat by Pulse Oximetry (%) 99 02/09/18 09:33 Constitutional: Yes: No Distress, Calm Cardiovascular: Yes: Regular Rate and Rhythm Respiratory: Yes: Regular Gastrointestinal: Yes: Normal Bowel Sounds, Soft Musculoskeletal: Yes: Back Pain Neurological: Yes: Alert Labs: CBC, BMP 02/06/18 06:40 02/09/18 11:55 INR, PTT INR 0.99 (0.83-1.09) 02/02/18 13:15 Problem List - Problems (1) Acute kidney injury Code(s): N17.9 - ACUTE KIDNEY FAILURE, UNSPECIFIED (2) Hydronephrosis Code(s): N13.30 - UNSPECIFIED HYDRONEPHROSIS (3) CAD (coronary artery disease) Code(s): I25.10 - ATHSCL HEART DISEASE OF [place] CORONARY ARTERY W/O ANG PCTRS Qualifiers: Coronary Disease-Associated Artery/Lesion type: [place] artery [place] vs. transplanted heart: [place] heart Associated angina: angina presence unspecified Qualified Code(s): I25.10 - Atherosclerotic heart disease of [place] coronary artery without angina pectoris (4) Hyperlipidemia Code(s): E78.5 - HYPERLIPIDEMIA, UNSPECIFIED Qualifiers: Hyperlipidemia type: unspecified Qualified Code(s): E78.5 - Hyperlipidemia , unspecified (5) Hypertension Code(s): I10 - ESSENTIAL (PRIMARY) HYPERTENSION (6) Lumbar back pain Code(s): M54.5 - LOW BACK PAIN (7) Type 2 diabetes mellitus Code(s): E11.9 - TYPE 2 DIABETES MELLITUS WITHOUT COMPLICATIONS Qualifiers: Diabetes mellitus jail insulin use: without jail use Diabetes mellitus complication status: with kidney complications Chronic kidney disease stage: stage 2 (mild) Assessment/Plan Lower Back pain - appears stable, afebrile - repeat labs ordered - cont. monitor off antibiotics
--- NOTE | 2018-02-09 23:28 | PN ---
Progress Note, Physician - Current Medication List Current Medications: Active Medications Acetaminophen (Tylenol -) 650 mg PO Q4H PRN PRN Reason: PAIN LEVEL 1 - 3 Last Admin: 02/09/18 18:31 Dose: 650 mg Acetaminophen (Tylenol -) 325 mg PO Q6H PRN PRN Reason: PAIN 6-10 Last Admin: 02/07/18 17:47 Dose: 325 mg Aspirin (Asa -) 81 mg PO DAILY [facility] Last Admin: 02/09/18 09:25 Dose: 81 mg Cyclobenzaprine HCl (Flexeril -) 10 mg PO Q8H PRN PRN Reason: MUSCLE SPASM Last Admin: 02/09/18 09:28 Dose: 10 mg Insulin Aspart (Novolog Vial Sliding Scale -) 1 vial SQ ACHS [facility]; Protocol Last Admin: 02/09/18 22:27 Dose: 4 units Metoprolol Tartrate (Lopressor -) 50 mg PO BID [facility] Last Admin: 02/09/18 22:26 Dose: 50 mg Oxycodone HCl (Roxicodone -) 10 mg PO Q6H PRN PRN Reason: PAIN 6-10 Last Admin: 02/09/18 18:31 Dose: 10 mg - Objective Vital Signs: Vital Signs Temperature 97.8 F 02/09/18 18:23 Pulse Rate 80 02/09/18 18:23 Respiratory Rate 18 02/09/18 18:23 Blood Pressure 144/85 02/09/18 18:23 O2 Sat by Pulse Oximetry (%) 99 02/09/18 09:33 Constitutional: Yes: Well Nourished Cardiovascular: Yes: WNL, Regular Rate and Rhythm Respiratory: Yes: WNL, Regular, CTA Bilaterally Gastrointestinal: Yes: WNL, Normal Bowel Sounds, Soft Labs: CBC, BMP 02/06/18 06:40 02/09/18 11:55 INR, PTT INR 0.99 (0.83-1.09) 02/02/18 13:15 Problem List - Problems (1) Acute on chronic renal failure Assessment/Plan: IVF was dc'ed Check labs in am DC planning Code(s): N17.9 - ACUTE KIDNEY FAILURE, UNSPECIFIED; N18.9 - CHRONIC KIDNEY DISEASE, UNSPECIFIED Qualifiers: Chronic kidney disease stage: stage 2 (mild) (2) Rhabdomyolysis Assessment/Plan: Improving CPK Code(s): M62.82 - RHABDOMYOLYSIS (3) Lumbar back pain Assessment/Plan: As per NSG no surgical intervention at this time Pain management consult Oxycodone dose had to be increased due to persistent pain W/U for multiple myeloma has been in progressive CT scan thoracic spine did not show any lesions As per heme Code(s): M54.5 - LOW BACK PAIN (4) CAD (coronary artery disease) Code(s): I25.10 - ATHSCL HEART DISEASE OF [place] CORONARY ARTERY W/O ANG PCTRS Qualifiers: Coronary Disease-Associated Artery/Lesion type: [place] artery [place] vs. transplanted heart: [place] heart Associated angina: angina presence unspecified Qualified Code(s): I25.10 - Atherosclerotic heart disease of [place] coronary artery without angina pectoris (5) Hyperlipidemia Code(s): E78.5 - HYPERLIPIDEMIA, UNSPECIFIED Qualifiers: Hyperlipidemia type: unspecified Qualified Code(s): E78.5 - Hyperlipidemia , unspecified (6) Hypertension Assessment/Plan: Bp slightly elevated Add norvasc Code(s): I10 - ESSENTIAL (PRIMARY) HYPERTENSION (7) Type 2 diabetes mellitus Assessment/Plan: Add glimepiride Code(s): E11.9 - TYPE 2 DIABETES MELLITUS WITHOUT COMPLICATIONS Qualifiers: Diabetes mellitus laborer marine terminal insulin use: without laborer marine terminal use Diabetes mellitus complication status: with kidney complications Chronic kidney disease stage: stage 2 (mild)
[2018-02-10 00:09] LABS: IGA IMMUNOGLOBULIN 582 mg/dL (90-386); IGG IMMUNOGLOBULIN 1127 mg/dL (700-1600); IGM IMMUNOGLOBULIN 59 mg/dL (20-172)
[2018-02-10] MEDS: oxyCODONE HCL 5 MG TABLET PO PRN ×4 (00:27→20:17)
[2018-02-10] MEDS: ACETAMINOPHEN 325 MG TABLET (FP) PO PRN ×4 (00:28→20:18)
[2018-02-10] MEDS: INSULIN SLIDING SCALE (NOVOLOG) 1 VIAL SQ SCH ×4 (06:00→22:48)
[2018-02-10] MEDS: GLIMEPIRIDE 4 MG TABLET (FP) PO SCH (06:01)
[2018-02-10 07:51] LABS: EOS % 1.6 % (0-4.5); HEMATOCRIT 40.6 % (35.4-49); HEMOGLOBIN 12.9 GM/dL (11.7-16.9); LYMPH % 28.7 % (8-40); MCH 25.5 pg (25.7-33.7); MCHC 31.9 g/dl (32.0-35.9); MEAN CELL VOLUME 80.2 fl (80-96); MEAN PLT VOLUME 9.5 fl (7.5-11.1); MONO % 10.6 % (3.8-10.2); NEUT % 58.1 % (42.8-82.8); PLATELET COUNT 231 K/MM3 (134-434); RBC 5.07 M/mm3 (4.00-5.60); RDW 14.2 % (11.9-15.9); WHITE BLOOD COUNT 6.8 K/mm3 (4.0-10.0)
[2018-02-10 08:15] LABS: ALBUMIN 3.8 g/dl (3.4-5.0); ALK PHOS 88 U/L (45-117); ANION GAP 3 MMOL/L (8-16); BILIRUBIN,TOTAL 0.5 mg/dL (0.2-1); BLOOD UREA NITROGEN 30 mg/dL (7-18); CALCIUM 9.2 mg/dL (8.5-10.1); CHLORIDE 104 mmol/L (98-107); CO2 22 mmol/L (21-32); CREATININE 1.7 mg/dL (0.55-1.3); GLUCOSE,RANDOM 198 mg/dL (74-106); POTASSIUM 4.4 mmol/L (3.5-5.1); SGOT/AST 19 U/L (15-37); SGPT/ALT 39 U/L (13-61); SODIUM 129 mmol/L (136-145); TOT PROT 7.8 g/dl (6.4-8.2)
[2018-02-10] MEDS: ASPIRIN 81 MG CHEWABLE TABLETS PO SCH (11:28)
[2018-02-10] MEDS: METOPROLOL TARTRATE 25 MG TABLET (FP) PO SCH ×2 (11:28→22:48)
[2018-02-10] MEDS: amLODIPine BESYLATE 2.5 MG TABLET (FP) PO SCH (11:28)
--- NOTE | 2018-02-10 11:36 | PN ---
Progress Note, Physician History of Present Illness: Pt seen and examined at bedside. He says that he has been drinking about 3 liters of water per day. - Current Medication List Current Medications: Active Medications Acetaminophen (Tylenol -) 650 mg PO Q4H PRN PRN Reason: PAIN LEVEL 1 - 3 Last Admin: 02/10/18 06:41 Dose: 650 mg Acetaminophen (Tylenol -) 325 mg PO Q6H PRN PRN Reason: PAIN 6-10 Last Admin: 02/07/18 17:47 Dose: 325 mg Amlodipine Besylate (Norvasc -) 2.5 mg PO DAILY [facility] Last Admin: 02/10/18 11:28 Dose: 2.5 mg Aspirin (Asa -) 81 mg PO DAILY [facility] Last Admin: 02/10/18 11:28 Dose: 81 mg Cyclobenzaprine HCl (Flexeril -) 10 mg PO Q8H PRN PRN Reason: MUSCLE SPASM Last Admin: 02/09/18 09:28 Dose: 10 mg Glimepiride (Amaryl -) 4 mg PO DAILY@0700 [facility] Last Admin: 02/10/18 06:01 Dose: 4 mg Insulin Aspart (Novolog Vial Sliding Scale -) 1 vial SQ ACHS [facility]; Protocol Last Admin: 02/10/18 06:00 Dose: 2 units Metoprolol Tartrate (Lopressor -) 50 mg PO BID [facility] Last Admin: 02/10/18 11:28 Dose: 50 mg Oxycodone HCl (Roxicodone -) 10 mg PO Q6H PRN PRN Reason: PAIN 6-10 Last Admin: 02/10/18 06:40 Dose: 10 mg - Objective Vital Signs: Vital Signs Temperature 97.8 F 02/10/18 02:00 Pulse Rate 66 02/10/18 02:00 Respiratory Rate 18 02/10/18 02:00 Blood Pressure 146/79 02/10/18 02:00 O2 Sat by Pulse Oximetry (%) 99 02/09/18 21:00 Constitutional: Yes: Calm Eyes: Yes: Conjunctiva Clear HENT: Yes: Atraumatic Neck: Yes: Supple Cardiovascular: Yes: S1, S2 Respiratory: Yes: CTA Bilaterally Gastrointestinal: Yes: Soft, Abdomen, Obese Genitourinary: Yes: WNL Musculoskeletal: Yes: Back Pain Edema: No Neurological: Yes: Oriented Psychiatric: Yes: Oriented Labs: CBC, BMP 10/15/18 07:30 02/10/18 07:30 INR, PTT INR 0.99 (0.83-1.09) 02/02/18 13:15 Problem List - Problems (1) Hydronephrosis Code(s): N13.30 - UNSPECIFIED HYDRONEPHROSIS (2) Acute kidney injury Code(s): N17.9 - ACUTE KIDNEY FAILURE, UNSPECIFIED (3) Rhabdomyolysis Code(s): M62.82 - RHABDOMYOLYSIS (4) CAD (coronary artery disease) Code(s): I25.10 - ATHSCL HEART DISEASE OF [place] CORONARY ARTERY W/O ANG PCTRS Qualifiers: Coronary Disease-Associated Artery/Lesion type: [place] artery [place] vs. transplanted heart: [place] heart Associated angina: angina presence unspecified Qualified Code(s): I25.10 - Atherosclerotic heart disease of [place] coronary artery without angina pectoris (5) Hyperlipidemia Code(s): E78.5 - HYPERLIPIDEMIA, UNSPECIFIED Qualifiers: Hyperlipidemia type: unspecified Qualified Code(s): E78.5 - Hyperlipidemia , unspecified (6) Hypertension Code(s): I10 - ESSENTIAL (PRIMARY) HYPERTENSION (7) Lumbar back pain Code(s): M54.5 - LOW BACK PAIN (8) Type 2 diabetes mellitus Code(s): E11.9 - TYPE 2 DIABETES MELLITUS WITHOUT COMPLICATIONS Qualifiers: Diabetes mellitus manager intermediate insulin use: without manager intermediate use Diabetes mellitus complication status: with kidney complications Chronic kidney disease stage: stage 2 (mild) Assessment/Plan Current Medications Generic Name Dose Route Start Last Admin Trade Name Freq PRN Reason Stop Dose Admin Acetaminophen 650 mg 02/02/18 17:48 02/10/18 06:41 Tylenol - PO 650 mg Q4H PRN Administration PAIN LEVEL 1 - 3 Acetaminophen 325 mg 02/07/18 09:58 02/07/18 17:47 Tylenol - PO 325 mg Q6H PRN Administration PAIN 6-10 Amlodipine Besylate 2.5 mg 02/10/18 10:00 02/10/18 11:28 Norvasc - PO 2.5 mg DAILY KIRK Administration Aspirin 81 mg 02/03/18 10:00 02/10/18 11:28 Asa - PO 81 mg DAILY KIRK Administration Cyclobenzaprine HCl 10 mg 02/03/18 13:59 02/09/18 09:28 Flexeril - PO 10 mg Q8H PRN Administration MUSCLE SPASM Glimepiride 4 mg 02/10/18 07:00 02/10/18 06:01 Amaryl - PO 4 mg DAILY@0700 KIRK Administration Insulin Aspart 1 vial 02/02/18 22:00 02/10/18 06:00 Novolog Vial Sliding Scale - SQ 2 units ACHS KIRK Administration Protocol Metoprolol Tartrate 50 mg 02/09/18 10:53 02/10/18 11:28 Lopressor - PO 50 mg BID KIRK Administration Oxycodone HCl 10 mg 02/07/18 09:57 02/10/18 06:40 Roxicodone - PO 10 mg Q6H PRN Administration PAIN 6-10 Impression 1. CKD with baseline manager cardiology about 1.7 2. rhabdo 3. right side hydro 4. DM uncontrolled 5. HTN 6. back pain 7. aicd 8. HLD Plan - restrict free water intake - repeat labs in am - avoid nsaids - hematology follow up - monitor cpk - statin on hold - urology input appreciated, still unclear why he has hydro Dr Ivy
--- NOTE | 2018-02-10 15:30 | PN ---
Progress Note, Physician History of Present Illness: stable continues to have pain - Current Medication List Current Medications: Active Medications Acetaminophen (Tylenol -) 650 mg PO Q4H PRN PRN Reason: PAIN LEVEL 1 - 3 Last Admin: 02/10/18 12:51 Dose: 650 mg Acetaminophen (Tylenol -) 325 mg PO Q6H PRN PRN Reason: PAIN 6-10 Last Admin: 02/07/18 17:47 Dose: 325 mg Amlodipine Besylate (Norvasc -) 2.5 mg PO DAILY [facility] Last Admin: 02/10/18 11:28 Dose: 2.5 mg Aspirin (Asa -) 81 mg PO DAILY [facility] Last Admin: 02/10/18 11:28 Dose: 81 mg Cyclobenzaprine HCl (Flexeril -) 10 mg PO Q8H PRN PRN Reason: MUSCLE SPASM Last Admin: 02/09/18 09:28 Dose: 10 mg Glimepiride (Amaryl -) 4 mg PO DAILY@0700 [facility] Last Admin: 02/10/18 06:01 Dose: 4 mg Insulin Aspart (Novolog Vial Sliding Scale -) 1 vial SQ [facility]; Protocol Last Admin: 02/10/18 12:15 Dose: 2 units Metoprolol Tartrate (Lopressor -) 50 mg PO BID [facility] Last Admin: 02/10/18 11:28 Dose: 50 mg Oxycodone HCl (Roxicodone -) 10 mg PO Q6H PRN PRN Reason: PAIN 6-10 Last Admin: 02/10/18 12:52 Dose: 10 mg - Objective Vital Signs: Vital Signs Temperature 98.6 F 02/10/18 10:00 Pulse Rate 78 02/10/18 10:00 Respiratory Rate 18 02/10/18 10:00 Blood Pressure 153/74 02/10/18 10:00 O2 Sat by Pulse Oximetry (%) 97 02/10/18 10:00 Constitutional: Yes: No Distress, Calm Cardiovascular: Yes: S1, S2, Other (pacemaker present) Respiratory: Yes: Regular, CTA Bilaterally Gastrointestinal: Yes: Normal Bowel Sounds, Soft Musculoskeletal: Yes: Back Pain Extremities: Yes: WNL Neurological: Yes: Alert, Oriented Psychiatric: Yes: Alert, Oriented Labs: CBC, BMP 02/10/18 07:30 02/10/18 07:30 INR, PTT INR 0.99 (0.83-1.09) 02/02/18 13:15 Assessment/Plan Problem List - Problems (1) Hydronephrosis Code(s): N13.30 - UNSPECIFIED HYDRONEPHROSIS (2) Acute kidney injury Code(s): N17.9 - ACUTE KIDNEY FAILURE, UNSPECIFIED (3) Rhabdomyolysis Code(s): M62.82 - RHABDOMYOLYSIS (4) CAD (coronary artery disease) Code(s): I25.10 - ATHSCL HEART DISEASE OF [place] CORONARY ARTERY W/O ANG PCTRS (5) Hyperlipidemia Code(s): E78.5 - HYPERLIPIDEMIA, UNSPECIFIED (6) Hypertension Code(s): I10 - ESSENTIAL (PRIMARY) HYPERTENSION (7) Lumbar back pain Code(s): M54.5 - LOW BACK PAIN (8) Type 2 diabetes mellitus Code(s): E11.9 - TYPE 2 DIABETES MELLITUS WITHOUT COMPLICATIONS plan continue to monitor continue as per the teams
--- NOTE | 2018-02-10 15:57 | PN ---
Physical Exam: SUBJECTIVE: Patient seen and examined at bedside. Continues to complain of back pain, states pain medication does not last long enough. Denies CP,WESLEY, SOB, abdominal pain , nausea or vomiting. OBJECTIVE: Vital Signs Period Temp Pulse Resp BP Sys/[place] Pulse Ox Last 24 Hr 97.8 F-98.6 F 66-80 18-18 143-153/74-92 97-99 GENERAL: AAOx3 , NAD LUNGS: CTAB, No wheezes, and no crackles. No accessory muscle use. HEART: RRR, normal S1 and S2 without murmur, rub or gallop. ABDOMEN: Soft, NTND, NABS, no guarding, no rebound, no masses. No hepatomegaly or splenomegaly. MUSCULOSKELETAL: Decreased flexion of right hip secondary to back pain. (+) straight leg raise on right. (+) right lumbar paraspinal tenderness. No CVA tenderness. NEUROLOGICAL: Cranial nerves II-XII intact. Normal speech. Sensation intact. Strength 5/5 in RUE/LUE/LLE and 4/5 in RLE. DTRs 2+ and symmetric. Gait not observed. Laboratory Results - last 24 hr 02/07/18 02/09/18 02/09/18 15:15 16:18 21:27 WBC RBC Hgb Hct MCV MCH MCHC RDW Plt Count MPV Absolute Neuts (auto) Neutrophils % Lymphocytes % Monocytes % Eosinophils % Basophils % Nucleated RBC % Sodium Potassium Chloride Carbon Dioxide Anion Gap BUN Creatinine Creat Clearance w eGFR POC Glucometer 313 213 Random Glucose Calcium Total Bilirubin AST ALT Alkaline Phosphatase Creatine Kinase Creatine Kinase Index CK-MB (CK-2) Total Protein Albumin IgG 1127 IgA 582 H IgM 59 02/10/18 02/10/18 02/10/18 05:46 07:30 07:30 WBC 6.8 RBC 5.07 Hgb 12.9 Hct 40.6 MCV 80.2 MCH 25.5 L MCHC 31.9 L RDW 14.2 Plt Count 231 MPV 9.5 Absolute Neuts (auto) 4.0 Neutrophils % 58.1 Lymphocytes % 28.7 Monocytes % 10.6 H Eosinophils % 1.6 Basophils % 1.0 Nucleated RBC % 0 Sodium 129 L Potassium 4.4 Chloride 104 Carbon Dioxide 22 Anion Gap 3 L BUN 30 H Creatinine 1.7 H Creat Clearance w eGFR 41.46 POC Glucometer 178 Random Glucose 198 H Calcium 9.2 Total Bilirubin 0.5 AST 19 ALT 39 Alkaline Phosphatase 88 Creatine Kinase 562 H Creatine Kinase Index 1.5 CK-MB (CK-2) 8.7 H Total Protein 7.8 Albumin 3.8 IgG IgA IgM 02/10/18 02/10/18 07:30 11:53 WBC RBC Hgb Hct MCV MCH MCHC RDW Plt Count MPV Absolute Neuts (auto) Neutrophils % Lymphocytes % Monocytes % Eosinophils % Basophils % Nucleated RBC % Sodium Potassium Chloride Carbon Dioxide Anion Gap BUN Creatinine Creat Clearance w eGFR POC Glucometer 184 Random Glucose Calcium Total Bilirubin AST ALT Alkaline Phosphatase Creatine Kinase Cancelled Creatine Kinase Index CK-MB (CK-2) Total Protein Albumin IgG IgA IgM Active Medications Generic Name Dose Route Start Last Admin Trade Name Freq PRN Reason Stop Dose Admin Acetaminophen 650 mg 02/02/18 17:48 02/10/18 12:51 Tylenol - PO 650 mg Q4H PRN Administration PAIN LEVEL 1 - 3 Acetaminophen 325 mg 02/07/18 09:58 02/07/18 17:47 Tylenol - PO 325 mg Q6H PRN Administration PAIN 6-10 Amlodipine Besylate 2.5 mg 02/10/18 10:00 02/10/18 11:28 Norvasc - PO 2.5 mg DAILY KIRK Administration Aspirin 81 mg 02/03/18 10:00 02/10/18 11:28 Asa - PO 81 mg DAILY KIRK Administration Cyclobenzaprine HCl 10 mg 02/03/18 13:59 02/09/18 09:28 Flexeril - PO 10 mg Q8H PRN Administration MUSCLE SPASM Glimepiride 4 mg 02/10/18 07:00 02/10/18 06:01 Amaryl - PO 4 mg DAILY@0700 KIRK Administration Insulin Aspart 1 vial 02/02/18 22:00 02/10/18 12:15 Novolog Vial Sliding Scale - SQ 2 units ACHS KIRK Administration Protocol Metoprolol Tartrate 50 mg 02/09/18 10:53 02/10/18 11:28 Lopressor - PO 50 mg BID KIRK Administration Oxycodone HCl 10 mg 02/07/18 09:57 02/10/18 12:52 Roxicodone - PO 10 mg Q6H PRN Administration PAIN 6-10 ASSESSMENT/PLAN: 57 yo M with PMHx of CAD, [place], HTN, Hyperlipidemia,Type 2 DM,CKD who comes to the ED today complaining of low back pain admitted for KAVEH. Problem List - Problems (1) Elevated serum immunoglobulin free light chain level Assessment/Plan: Clinical suspicion for MM. * Skeletal survey done; read pending. * SPEP and UPEP, immunofixation. pending * Quant. Ig show increase in IgA * Urine free kappa/Lambda only slightly elevated - non specific * CT thorax was negative for bony lesions * Further recommendation pending result (2) Acute on chronic renal failure (3) CAD (coronary artery disease) Code(s): I25.10 - ATHSCL HEART DISEASE OF [place] CORONARY ARTERY W/O ANG PCTRS Qualifiers: Coronary Disease-Associated Artery/Lesion type: [place] artery [place] vs. transplanted heart: [place] heart Associated angina: angina presence unspecified Qualified Code(s): I25.10 - Atherosclerotic heart disease of [place] coronary artery without angina pectoris (4) Hyperlipidemia (5) Type 2 diabetes mellitus Visit type - Emergency Visit Emergency Visit: Yes ED Registration Date: 02/02/18 Care time: The patient presented to the Emergency Department on the above date and was hospitalized for further evaluation of their emergent condition. - New Patient This patient is new to me today: No - Critical Care Critical Care patient: No
[2018-02-10] MEDS ORDERED: PT OWN MED DRAWER 7, Y5N ONE (19:44)
--- NOTE | 2018-02-10 22:56 | PN ---
Progress Note, Physician History of Present Illness: No new complaints - Current Medication List Current Medications: Active Medications Acetaminophen (Tylenol -) 650 mg PO Q4H PRN PRN Reason: PAIN LEVEL 1 - 3 Last Admin: 02/10/18 12:51 Dose: 650 mg Acetaminophen (Tylenol -) 325 mg PO Q6H PRN PRN Reason: PAIN 6-10 Last Admin: 02/10/18 20:18 Dose: 325 mg Amlodipine Besylate (Norvasc -) 2.5 mg PO DAILY [facility] Last Admin: 02/10/18 11:28 Dose: 2.5 mg Aspirin (Asa -) 81 mg PO DAILY [facility] Last Admin: 02/10/18 11:28 Dose: 81 mg Cyclobenzaprine HCl (Flexeril -) 10 mg PO Q8H PRN PRN Reason: MUSCLE SPASM Last Admin: 02/09/18 09:28 Dose: 10 mg Glimepiride (Amaryl -) 4 mg PO DAILY@0700 [facility] Last Admin: 02/10/18 06:01 Dose: 4 mg Insulin Aspart (Novolog Vial Sliding Scale -) 1 vial SQ ACHS [facility]; Protocol Last Admin: 02/10/18 22:48 Dose: 4 units Metoprolol Tartrate (Lopressor -) 50 mg PO BID [facility] Last Admin: 02/10/18 22:48 Dose: 50 mg Oxycodone HCl (Roxicodone -) 10 mg PO Q6H PRN PRN Reason: PAIN 6-10 Last Admin: 02/10/18 20:17 Dose: 10 mg - Objective Vital Signs: Vital Signs Temperature 98.4 F 02/10/18 18:34 Pulse Rate 68 02/10/18 18:34 Respiratory Rate 18 02/10/18 18:34 Blood Pressure 139/72 02/10/18 18:34 O2 Sat by Pulse Oximetry (%) 97 02/10/18 10:00 Neck: Yes: WNL, Supple Cardiovascular: Yes: WNL, Regular Rate and Rhythm Respiratory: Yes: WNL, Regular, CTA Bilaterally Gastrointestinal: Yes: WNL, Normal Bowel Sounds, Soft Labs: CBC, BMP 02/10/18 07:30 02/10/18 07:30 INR, PTT INR 0.99 (0.83-1.09) 02/02/18 13:15 Problem List - Problems (1) Acute on chronic renal failure Assessment/Plan: Improving renal function W/U in progress CT scan chest/bone scan to r/o multiple myeloma Code(s): N17.9 - ACUTE KIDNEY FAILURE, UNSPECIFIED; N18.9 - CHRONIC KIDNEY DISEASE, UNSPECIFIED Qualifiers: Chronic kidney disease stage: stage 2 (mild) (2) Rhabdomyolysis Assessment/Plan: Improving CPK Code(s): M62.82 - RHABDOMYOLYSIS (3) Lumbar back pain Assessment/Plan: As per NSG no surgical intervention at this time Pain management consult Oxycodone dose had to be increased due to persistent pain W/U for multiple myeloma has been in progressive CT scan thoracic spine did not show any lesions As per heme Code(s): M54.5 - LOW BACK PAIN (4) CAD (coronary artery disease) Code(s): I25.10 - ATHSCL HEART DISEASE OF [place] CORONARY ARTERY W/O ANG PCTRS Qualifiers: Coronary Disease-Associated Artery/Lesion type: [place] artery [place] vs. 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
[2018-02-11] MEDS: oxyCODONE HCL 5 MG TABLET PO PRN ×3 (04:42→17:15)
[2018-02-11] MEDS: ACETAMINOPHEN 325 MG TABLET (FP) PO PRN (04:44)
[2018-02-11] MEDS ORDERED: PT OWN MED DRAWER 7, Y5N ONE (04:46)
[2018-02-11] MEDS: GLIMEPIRIDE 4 MG TABLET (FP) PO SCH (06:26)
[2018-02-11] MEDS: INSULIN SLIDING SCALE (NOVOLOG) 1 VIAL SQ SCH ×4 (06:26→21:34)
[2018-02-11 08:06] LABS: BASO % 0.8 % (0-2.0); EOS % 1.6 % (0-4.5); HEMATOCRIT 40.7 % (35.4-49); HEMOGLOBIN 13.1 GM/dL (11.7-16.9); LYMPH % 25.6 % (8-40); MCH 26.1 pg (25.7-33.7); MCHC 32.3 g/dl (32.0-35.9); MEAN PLT VOLUME 9.1 fl (7.5-11.1); MONO % 10.4 % (3.8-10.2); NEUT % 61.6 % (42.8-82.8); PLATELET COUNT 209 K/MM3 (134-434); RBC 5.03 M/mm3 (4.00-5.60); RDW 14.3 % (11.9-15.9); WHITE BLOOD COUNT 6.7 K/mm3 (4.0-10.0)
[2018-02-11 08:45] LABS: ALBUMIN 3.7 g/dl (3.4-5.0); ALK PHOS 85 U/L (45-117); ANION GAP 8 MMOL/L (8-16); BILIRUBIN,TOTAL 0.4 mg/dL (0.2-1); BLOOD UREA NITROGEN 34 mg/dL (7-18); CHLORIDE 101 mmol/L (98-107); CO2 27 mmol/L (21-32); GLUCOSE,RANDOM 192 mg/dL (74-106); POTASSIUM 5.7 mmol/L (3.5-5.1); SGOT/AST 21 U/L (15-37); SGPT/ALT 40 U/L (13-61); SODIUM 136 mmol/L (136-145); TOT PROT 7.6 g/dl (6.4-8.2)
--- NOTE | 2018-02-11 10:00 | PN ---
Progress Note, Physician History of Present Illness: says severe pain in the back main issues denies any other issues - Current Medication List Current Medications: Active Medications Acetaminophen (Tylenol -) 650 mg PO Q4H PRN PRN Reason: PAIN LEVEL 1 - 3 Last Admin: 02/10/18 12:51 Dose: 650 mg Acetaminophen (Tylenol -) 325 mg PO Q6H PRN PRN Reason: PAIN 6-10 Last Admin: 02/11/18 04:44 Dose: 325 mg Amlodipine Besylate (Norvasc -) 2.5 mg PO DAILY [facility] Last Admin: 02/10/18 11:28 Dose: 2.5 mg Aspirin (Asa -) 81 mg PO DAILY [facility] Last Admin: 02/10/18 11:28 Dose: 81 mg Cyclobenzaprine HCl (Flexeril -) 10 mg PO Q8H PRN PRN Reason: MUSCLE SPASM Last Admin: 02/09/18 09:28 Dose: 10 mg Glimepiride (Amaryl -) 4 mg PO DAILY@0700 [facility] Last Admin: 02/11/18 06:26 Dose: 4 mg Insulin Aspart (Novolog Vial Sliding Scale -) 1 vial SQ [facility]; Protocol Last Admin: 02/11/18 06:26 Dose: 2 units Metoprolol Tartrate (Lopressor -) 50 mg PO BID [facility] Last Admin: 02/10/18 22:48 Dose: 50 mg Oxycodone HCl (Roxicodone -) 10 mg PO Q6H PRN PRN Reason: PAIN 6-10 Last Admin: 02/11/18 04:42 Dose: 10 mg - Objective Vital Signs: Vital Signs Temperature 98.1 F 02/11/18 05:00 Pulse Rate 68 02/11/18 05:00 Respiratory Rate 20 02/11/18 05:00 Blood Pressure 143/87 02/11/18 05:00 O2 Sat by Pulse Oximetry (%) 97 02/10/18 21:00 Constitutional: Yes: Calm, Moderate Distress Neck: Yes: Supple, Trachea Midline Cardiovascular: Yes: Regular Rate and Rhythm Respiratory: Yes: Regular, CTA Bilaterally Gastrointestinal: Yes: Normal Bowel Sounds, Soft Musculoskeletal: Yes: WNL Extremities: Yes: WNL Neurological: Yes: Alert, Oriented Psychiatric: Yes: Alert, Oriented Labs: CBC, BMP 02/11/18 07:55 02/11/18 07:55 INR, PTT INR 0.99 (0.83-1.09) 02/02/18 13:15 Assessment/Plan Problem List - Problems (1) Hydronephrosis Code(s): N13.30 - UNSPECIFIED HYDRONEPHROSIS (2) Acute kidney injury Code(s): N17.9 - ACUTE KIDNEY FAILURE, UNSPECIFIED (3) Rhabdomyolysis Code(s): M62.82 - RHABDOMYOLYSIS (4) CAD (coronary artery disease) Code(s): I25.10 - ATHSCL HEART DISEASE OF [place] CORONARY ARTERY W/O ANG PCTRS (5) Hyperlipidemia Code(s): E78.5 - HYPERLIPIDEMIA, UNSPECIFIED (6) Hypertension Code(s): I10 - ESSENTIAL (PRIMARY) HYPERTENSION (7) Lumbar back pain Code(s): M54.5 - LOW BACK PAIN (8) Type 2 diabetes mellitus Code(s): E11.9 - TYPE 2 DIABETES MELLITUS WITHOUT COMPLICATIONS plan continue to monitor continue as per the teams
[2018-02-11] MEDS: amLODIPine BESYLATE 2.5 MG TABLET (FP) PO SCH (10:41)
[2018-02-11] MEDS: ASPIRIN 81 MG CHEWABLE TABLETS PO SCH (10:42)
[2018-02-11] MEDS: METOPROLOL TARTRATE 25 MG TABLET (FP) PO SCH ×2 (10:42→21:34)
[2018-02-11] MEDS: CYCLOBENZAPRINE HCL 10 MG TABLET (FP) PO PRN ×2 (10:42→21:34)
[2018-02-11] MEDS ORDERED: SODIUM POLYSTYRENE SULFONATE 15 GM/60 ML BOTTLE PO ONE (13:32)
--- NOTE | 2018-02-11 13:32 | PN ---
Progress Note, Physician History of Present Illness: Pt seen and examined at bedside. He is awake and alert. He denies shortness of breath. He complains of back pain radiating to his leg. - Current Medication List Current Medications: Active Medications Acetaminophen (Tylenol -) 650 mg PO Q4H PRN PRN Reason: PAIN LEVEL 1 - 3 Last Admin: 02/10/18 12:51 Dose: 650 mg Acetaminophen (Tylenol -) 325 mg PO Q6H PRN PRN Reason: PAIN 6-10 Last Admin: 02/11/18 04:44 Dose: 325 mg Amlodipine Besylate (Norvasc -) 2.5 mg PO DAILY [facility] Last Admin: 02/11/18 10:41 Dose: 2.5 mg Aspirin (Asa -) 81 mg PO DAILY [facility] Last Admin: 02/11/18 10:42 Dose: 81 mg Cyclobenzaprine HCl (Flexeril -) 10 mg PO Q8H PRN PRN Reason: MUSCLE SPASM Last Admin: 02/11/18 10:42 Dose: 10 mg Glimepiride (Amaryl -) 4 mg PO DAILY@0700 [facility] Last Admin: 02/11/18 06:26 Dose: 4 mg Insulin Aspart (Novolog Vial Sliding Scale -) 1 vial SQ [facility]; Protocol Last Admin: 02/11/18 12:23 Dose: 2 units Metoprolol Tartrate (Lopressor -) 50 mg PO BID [facility] Last Admin: 02/11/18 10:42 Dose: 50 mg Oxycodone HCl (Roxicodone -) 10 mg PO Q6H PRN PRN Reason: PAIN 6-10 Last Admin: 02/11/18 10:41 Dose: 10 mg - Objective Vital Signs: Vital Signs Temperature 98.2 F 02/11/18 10:00 Pulse Rate 79 02/11/18 10:00 Respiratory Rate 20 02/11/18 10:00 Blood Pressure 147/60 02/11/18 10:00 O2 Sat by Pulse Oximetry (%) 97 02/10/18 21:00 Constitutional: Yes: Calm Eyes: Yes: Conjunctiva Clear HENT: Yes: Atraumatic Neck: Yes: Supple Cardiovascular: Yes: S1, S2 Respiratory: Yes: CTA Bilaterally Gastrointestinal: Yes: Soft, Abdomen, Obese Genitourinary: Yes: WNL Musculoskeletal: Yes: Back Pain Edema: No Neurological: Yes: Oriented Psychiatric: Yes: Oriented Labs: CBC, BMP 02/11/18 07:55 02/11/18 07:55 INR, PTT INR 0.99 (0.83-1.09) 02/02/18 13:15 Problem List - Problems (1) Hydronephrosis Code(s): N13.30 - UNSPECIFIED HYDRONEPHROSIS (2) Acute kidney injury Code(s): N17.9 - ACUTE KIDNEY FAILURE, UNSPECIFIED (3) Rhabdomyolysis Code(s): M62.82 - RHABDOMYOLYSIS (4) CAD (coronary artery disease) Code(s): I25.10 - ATHSCL HEART DISEASE OF [place] CORONARY ARTERY W/O ANG PCTRS Qualifiers: Coronary Disease-Associated Artery/Lesion type: [place] artery [place] vs. transplanted heart: [place] heart Associated angina: angina presence unspecified Qualified Code(s): I25.10 - Atherosclerotic heart disease of [place] coronary artery without angina pectoris (5) Hyperlipidemia Code(s): E78.5 - HYPERLIPIDEMIA, UNSPECIFIED Qualifiers: Hyperlipidemia type: unspecified Qualified Code(s): E78.5 - Hyperlipidemia , unspecified (6) Hypertension Code(s): I10 - ESSENTIAL (PRIMARY) HYPERTENSION (7) Lumbar back pain Code(s): M54.5 - LOW BACK PAIN (8) Type 2 diabetes mellitus Code(s): E11.9 - TYPE 2 DIABETES MELLITUS WITHOUT COMPLICATIONS Qualifiers: Diabetes mellitus long[place] foreman insulin use: without longwall foreman use Diabetes mellitus complication status: with kidney complications Chronic kidney disease stage: stage 2 (mild) Assessment/Plan Current Medications Generic Name Dose Route Start Last Admin Trade Name David PRN Reason Stop Dose Admin Acetaminophen 650 mg 02/02/18 17:48 02/10/18 12:51 Tylenol - PO 650 mg Q4H PRN Administration PAIN LEVEL 1 - 3 Acetaminophen 325 mg 02/07/18 09:58 02/11/18 04:44 Tylenol - PO 325 mg Q6H PRN Administration PAIN 6-10 Amlodipine Besylate 2.5 mg 02/10/18 10:00 02/11/18 10:41 Norvasc - PO 2.5 mg DAILY [facility] Administration Aspirin 81 mg 02/03/18 10:00 02/11/18 10:42 Asa - PO 81 mg DAILY [facility] Administration Cyclobenzaprine HCl 10 mg 02/03/18 13:59 02/11/18 10:42 Flexeril - PO 10 mg Q8H PRN Administration MUSCLE SPASM Glimepiride 4 mg 02/10/18 07:00 02/11/18 06:26 Amaryl - PO 4 mg DAILY@0700 [facility] Administration Insulin Aspart 1 vial 02/02/18 22:00 02/11/18 12:23 Novolog Vial Sliding Scale - SQ 2 units ACHS [facility] Administration Protocol Metoprolol Tartrate 50 mg 02/09/18 10:53 02/11/18 10:42 Lopressor - PO 50 mg BID [facility] Administration Oxycodone HCl 10 mg 02/07/18 09:57 02/11/18 10:41 Roxicodone - PO 10 mg Q6H PRN Administration PAIN 6-10 Impression 1. CKD with baseline iron setter about 1.7 2. rhabdo 3. right side hydro 4. DM uncontrolled 5. HTN 6. back pain 7. aicd 8. HLD Plan - will restart saline - will give a small dose of layexylate as potassium is rising again - renal diet - monitor CPK - avoid nsids - statin on hold - urology input appreciated, still unclear why he has hydro Dr Ivy
[2018-02-11] MEDS ORDERED: SODIUM POLYSTYRENE SULFONATE 15 GM/60 ML BOTTLE ONE (15:11)
[2018-02-11] MEDS: SODIUM CHLORIDE 1,000 ML IV SCH (15:22)
[2018-02-11] MEDS ORDERED: INSULIN (NOVOLOG) ASPART 100 UNITS/ML 10ML VIAL ONE (17:08)
--- NOTE | 2018-02-11 18:03 | PN ---
Progress Note (short form) - Note Progress Note: Patient seen and examined Complains of back pains Interval of analgesia might be shortened to facilitate improved analgesia/ Awaiting skeletal survey. Labs Free kappa/free lambda light chains mild increase No "M" component IgA elevation with no recipricopral depression of IgG or IgM. To await further work up .
--- NOTE | 2018-02-11 22:34 | PN ---
Progress Note, Physician - Current Medication List Current Medications: Active Medications Acetaminophen (Tylenol -) 650 mg PO Q4H PRN PRN Reason: PAIN LEVEL 1 - 3 Last Admin: 02/10/18 12:51 Dose: 650 mg Acetaminophen (Tylenol -) 325 mg PO Q6H PRN PRN Reason: PAIN 6-10 Last Admin: 02/11/18 04:44 Dose: 325 mg Amlodipine Besylate (Norvasc -) 2.5 mg PO DAILY [facility] Last Admin: 02/11/18 10:41 Dose: 2.5 mg Aspirin (Asa -) 81 mg PO DAILY [facility] Last Admin: 02/11/18 10:42 Dose: 81 mg Cyclobenzaprine HCl (Flexeril -) 10 mg PO Q8H PRN PRN Reason: MUSCLE SPASM Last Admin: 02/11/18 21:34 Dose: 10 mg Glimepiride (Amaryl -) 4 mg PO DAILY@0700 [facility] Last Admin: 02/11/18 06:26 Dose: 4 mg Sodium Chloride (Normal Saline -) 1,000 mls @ 50 mls/hr IV ASDIR [facility] Stop: 02/12/18 13:32 Last Admin: 02/11/18 15:22 Dose: 50 mls/hr Insulin Aspart (Novolog Vial Sliding Scale -) 1 vial SQ ACHS [facility]; Protocol Last Admin: 02/11/18 21:34 Dose: 4 units Metoprolol Tartrate (Lopressor -) 50 mg PO BID [facility] Last Admin: 02/11/18 21:34 Dose: 50 mg Oxycodone HCl (Roxicodone -) 10 mg PO Q6H PRN PRN Reason: PAIN 6-10 Last Admin: 02/11/18 17:15 Dose: 10 mg - Objective Vital Signs: Vital Signs Temperature 97.5 F L 02/11/18 18:00 Pulse Rate 75 02/11/18 18:00 Respiratory Rate 20 02/11/18 18:00 Blood Pressure 140/85 02/11/18 18:00 O2 Sat by Pulse Oximetry (%) 98 02/11/18 09:00 Labs: CBC, BMP 02/11/18 07:55 02/11/18 07:55 INR, PTT INR 0.99 (0.83-1.09) 02/02/18 13:15 Problem List - Problems (1) Acute on chronic renal failure Code(s): N17.9 - ACUTE KIDNEY FAILURE, UNSPECIFIED; N18.9 - CHRONIC KIDNEY DISEASE, UNSPECIFIED Qualifiers: Chronic kidney disease stage: stage 2 (mild) (2) Rhabdomyolysis Code(s): M62.82 - RHABDOMYOLYSIS (3) Lumbar back pain Code(s): M54.5 - LOW BACK PAIN (4) CAD (coronary artery disease) Code(s): I25.10 - ATHSCL HEART DISEASE OF [place] CORONARY ARTERY W/O ANG PCTRS Qualifiers: Coronary Disease-Associated Artery/Lesion type: [place] artery [place] vs. transplanted heart: [place] heart Associated angina: angina presence unspecified Qualified Code(s): I25.10 - Atherosclerotic heart disease of [place] coronary artery without angina pectoris (5) Hyperlipidemia Code(s): E78.5 - HYPERLIPIDEMIA, UNSPECIFIED Qualifiers: Hyperlipidemia type: unspecified Qualified Code(s): E78.5 - Hyperlipidemia , unspecified (6) Hypertension Code(s): I10 - ESSENTIAL (PRIMARY) HYPERTENSION (7) Type 2 diabetes mellitus Code(s): E11.9 - TYPE 2 DIABETES MELLITUS WITHOUT COMPLICATIONS Qualifiers: Diabetes mellitus intermodal dispatcher insulin use: without intermodal dispatcher use Diabetes mellitus complication status: with kidney complications Chronic kidney disease stage: stage 2 (mild)
[2018-02-12] MEDS: ACETAMINOPHEN 325 MG TABLET (FP) PO PRN ×4 (00:29→23:37)
[2018-02-12] MEDS: oxyCODONE HCL 5 MG TABLET PO PRN ×4 (00:29→23:36)
[2018-02-12] MEDS: INSULIN SLIDING SCALE (NOVOLOG) 1 VIAL SQ SCH ×4 (06:13→21:27)
[2018-02-12] MEDS: CYCLOBENZAPRINE HCL 10 MG TABLET (FP) PO PRN (06:14)
[2018-02-12] MEDS: GLIMEPIRIDE 4 MG TABLET (FP) PO SCH (06:14)
[2018-02-12] MEDS ORDERED: INSULIN (LEVEMIR) 100 UNITS/ML UNITS SQ ONE (07:12)
[2018-02-12] MEDS ORDERED: INSULIN (NOVOLOG) ASPART 100 UNITS/ML 10ML VIAL ONE ×2 (07:13→11:17)
[2018-02-12 09:10] LABS: ALBUMIN 3.8 g/dl (3.4-5.0); ALK PHOS 83 U/L (45-117); ANION GAP 8 MMOL/L (8-16); BILIRUBIN,TOTAL 0.4 mg/dL (0.2-1); BLOOD UREA NITROGEN 35 mg/dL (7-18); CALCIUM 8.4 mg/dL (8.5-10.1); CHLORIDE 102 mmol/L (98-107); CO2 25 mmol/L (21-32); CREATININE 1.8 mg/dL (0.55-1.3); GLUCOSE,RANDOM 170 mg/dL (74-106); POTASSIUM 4.5 mmol/L (3.5-5.1); SGOT/AST 23 U/L (15-37); SGPT/ALT 41 U/L (13-61); SODIUM 134 mmol/L (136-145); TOT PROT 7.6 g/dl (6.4-8.2)
[2018-02-12] MEDS: METOPROLOL TARTRATE 25 MG TABLET (FP) PO SCH ×2 (10:21→21:23)
[2018-02-12] MEDS: amLODIPine BESYLATE 2.5 MG TABLET (FP) PO SCH (10:22)
[2018-02-12] MEDS: ASPIRIN 81 MG CHEWABLE TABLETS PO SCH (10:22)
[2018-02-12] MEDS: SODIUM CHLORIDE 1,000 ML IV SCH (10:23)
--- NOTE | 2018-02-12 11:51 | PN ---
Progress Note, Physician History of Present Illness: Pt seen and examined at bedside. He is awake and alert. He denies shortness of breath. - Current Medication List Current Medications: Active Medications Acetaminophen (Tylenol -) 650 mg PO Q4H PRN PRN Reason: PAIN LEVEL 1 - 3 Last Admin: 02/12/18 10:23 Dose: 650 mg Acetaminophen (Tylenol -) 325 mg PO Q6H PRN PRN Reason: PAIN 6-10 Last Admin: 02/12/18 00:29 Dose: 325 mg Amlodipine Besylate (Norvasc -) 2.5 mg PO DAILY [facility] Last Admin: 02/12/18 10:22 Dose: 2.5 mg Aspirin (Asa -) 81 mg PO DAILY [facility] Last Admin: 02/12/18 10:22 Dose: 81 mg Cyclobenzaprine HCl (Flexeril -) 10 mg PO Q8H PRN PRN Reason: MUSCLE SPASM Last Admin: 02/12/18 06:14 Dose: 10 mg Glimepiride (Amaryl -) 4 mg PO DAILY@0700 [facility] Last Admin: 02/12/18 06:14 Dose: 4 mg Sodium Chloride (Normal Saline -) 1,000 mls @ 50 mls/hr IV ASDIR [facility] Stop: 02/12/18 13:32 Last Admin: 02/12/18 10:23 Dose: 50 mls/hr Insulin Aspart (Novolog Vial Sliding Scale -) 1 vial SQ A[facility]; Protocol Last Admin: 02/12/18 11:18 Dose: 6 units Metoprolol Tartrate (Lopressor -) 50 mg PO BID [facility] Last Admin: 02/12/18 10:21 Dose: 50 mg Oxycodone HCl (Roxicodone -) 10 mg PO Q6H PRN PRN Reason: PAIN 6-10 Last Admin: 02/12/18 10:22 Dose: 10 mg - Objective Vital Signs: Vital Signs Temperature 97.5 F L 02/12/18 06:00 Pulse Rate 73 02/12/18 06:00 Respiratory Rate 20 02/12/18 06:00 Blood Pressure 124/72 02/12/18 06:00 O2 Sat by Pulse Oximetry (%) 98 02/11/18 21:00 Constitutional: Yes: Calm Eyes: Yes: Conjunctiva Clear HENT: Yes: Atraumatic Cardiovascular: Yes: S1, S2 Respiratory: Yes: CTA Bilaterally Gastrointestinal: Yes: Soft, Abdomen, Obese Genitourinary: Yes: WNL Musculoskeletal: Yes: Back Pain Edema: No Neurological: Yes: Oriented Psychiatric: Yes: Oriented Labs: CBC, BMP 02/11/18 07:55 02/12/18 06:30 INR, PTT INR 0.99 (0.83-1.09) 02/02/18 13:15 Problem List - Problems (1) Hydronephrosis Code(s): N13.30 - UNSPECIFIED HYDRONEPHROSIS (2) Acute kidney injury Code(s): N17.9 - ACUTE KIDNEY FAILURE, UNSPECIFIED (3) Rhabdomyolysis Code(s): M62.82 - RHABDOMYOLYSIS (4) CAD (coronary artery disease) Code(s): I25.10 - ATHSCL HEART DISEASE OF [place] CORONARY ARTERY W/O ANG PCTRS Qualifiers: Coronary Disease-Associated Artery/Lesion type: [place] artery [place] vs. transplanted heart: [place] heart Associated angina: angina presence unspecified Qualified Code(s): I25.10 - Atherosclerotic heart disease of [place] coronary artery without angina pectoris (5) Hyperlipidemia Code(s): E78.5 - HYPERLIPIDEMIA, UNSPECIFIED Qualifiers: Hyperlipidemia type: unspecified Qualified Code(s): E78.5 - Hyperlipidemia , unspecified (6) Hypertension Code(s): I10 - ESSENTIAL (PRIMARY) HYPERTENSION (7) Lumbar back pain Code(s): M54.5 - LOW BACK PAIN (8) Type 2 diabetes mellitus Code(s): E11.9 - TYPE 2 DIABETES MELLITUS WITHOUT COMPLICATIONS Qualifiers: Diabetes mellitus terminal carman insulin use: without terminal carman use Diabetes mellitus complication status: with kidney complications Chronic kidney disease stage: stage 2 (mild) Assessment/Plan Current Medications Generic Name Dose Route Start Last Admin Trade Name Freq PRN Reason Stop Dose Admin Acetaminophen 650 mg 02/02/18 17:48 02/12/18 10:23 Tylenol - PO 650 mg Q4H PRN Administration PAIN LEVEL 1 - 3 Acetaminophen 325 mg 02/07/18 09:58 02/12/18 00:29 Tylenol - PO 325 mg Q6H PRN Administration PAIN 6-10 Amlodipine Besylate 2.5 mg 02/10/18 10:00 02/12/18 10:22 Norvasc - PO 2.5 mg DAILY [facility] Administration Aspirin 81 mg 02/03/18 10:00 02/12/18 10:22 Asa - PO 81 mg DAILY [facility] Administration Cyclobenzaprine HCl 10 mg 02/03/18 13:59 02/12/18 06:14 Flexeril - PO 10 mg Q8H PRN Administration MUSCLE SPASM Glimepiride 4 mg 02/10/18 07:00 02/12/18 06:14 Amaryl - PO 4 mg DAILY@0700 [facility] Administration Sodium Chloride 1,000 mls @ 50 mls/hr 02/11/18 13:45 02/12/18 10:23 Normal Saline - IV 02/12/18 13:32 50 mls/hr ASDIR [facility] Administration Insulin Aspart 1 vial 02/02/18 22:00 02/12/18 11:18 Novolog Vial Sliding Scale - SQ 6 units ACHS [facility] Administration Protocol Metoprolol Tartrate 50 mg 02/09/18 10:53 02/12/18 10:21 Lopressor - PO 50 mg BID [facility] Administration Oxycodone HCl 10 mg 02/07/18 09:57 02/12/18 10:22 Roxicodone - PO 10 mg Q6H PRN Administration PAIN 6-10 Impression 1. CKD with baseline director of testing about 1.7 2. rhabdo 3. right side hydro 4. DM uncontrolled 5. HTN 6. back pain 7. aicd 8. HLD Plan - renal function stabilizing - will need further workup - repeat cpk in am - avoid nsaids - follow bone survey - statin on hold Dr Ivy
[2018-02-12] MEDS ORDERED: SODIUM CHLORIDE 1,000 ML IV SCH (11:52)
--- NOTE | 2018-02-12 13:50 | PN ---
Progress Note, Physician History of Present Illness: stable no new issues - Current Medication List Current Medications: Active Medications Acetaminophen (Tylenol -) 650 mg PO Q4H PRN PRN Reason: PAIN LEVEL 1 - 3 Last Admin: 02/12/18 10:23 Dose: 650 mg Acetaminophen (Tylenol -) 325 mg PO Q6H PRN PRN Reason: PAIN 6-10 Last Admin: 02/12/18 00:29 Dose: 325 mg Amlodipine Besylate (Norvasc -) 2.5 mg PO DAILY [facility] Last Admin: 02/12/18 10:22 Dose: 2.5 mg Aspirin (Asa -) 81 mg PO DAILY [facility] Last Admin: 02/12/18 10:22 Dose: 81 mg Cyclobenzaprine HCl (Flexeril -) 10 mg PO Q8H PRN PRN Reason: MUSCLE SPASM Last Admin: 02/12/18 06:14 Dose: 10 mg Glimepiride (Amaryl -) 4 mg PO DAILY@0700 [facility] Last Admin: 02/12/18 06:14 Dose: 4 mg Insulin Aspart (Novolog Vial Sliding Scale -) 1 vial SQ [facility]; Protocol Last Admin: 02/12/18 11:18 Dose: 6 units Metoprolol Tartrate (Lopressor -) 50 mg PO BID [facility] Last Admin: 02/12/18 10:21 Dose: 50 mg Oxycodone HCl (Roxicodone -) 10 mg PO Q6H PRN PRN Reason: PAIN 6-10 Last Admin: 02/12/18 10:22 Dose: 10 mg - Objective Vital Signs: Vital Signs Temperature 97.5 F L 02/12/18 06:00 Pulse Rate 73 02/12/18 06:00 Respiratory Rate 20 02/12/18 06:00 Blood Pressure 124/72 02/12/18 06:00 O2 Sat by Pulse Oximetry (%) 98 02/11/18 21:00 Constitutional: Yes: No Distress, Calm, Obese Cardiovascular: Yes: Regular Rate and Rhythm Respiratory: Yes: Regular, CTA Bilaterally Gastrointestinal: Yes: Normal Bowel Sounds, Soft Musculoskeletal: Yes: WNL Extremities: Yes: WNL Neurological: Yes: Alert, Oriented Psychiatric: Yes: Alert, Oriented Labs: CBC, BMP 02/11/18 07:55 02/12/18 06:30 INR, PTT INR 0.99 (0.83-1.09) 02/02/18 13:15 Assessment/Plan Problem List - Problems (1) Hydronephrosis Code(s): N13.30 - UNSPECIFIED HYDRONEPHROSIS (2) Acute kidney injury Code(s): N17.9 - ACUTE KIDNEY FAILURE, UNSPECIFIED (3) Rhabdomyolysis Code(s): M62.82 - RHABDOMYOLYSIS (4) CAD (coronary artery disease) Code(s): I25.10 - ATHSCL HEART DISEASE OF [place] CORONARY ARTERY W/O ANG PCTRS (5) Hyperlipidemia Code(s): E78.5 - HYPERLIPIDEMIA, UNSPECIFIED (6) Hypertension Code(s): I10 - ESSENTIAL (PRIMARY) HYPERTENSION (7) Lumbar back pain Code(s): M54.5 - LOW BACK PAIN (8) Type 2 diabetes mellitus Code(s): E11.9 - TYPE 2 DIABETES MELLITUS WITHOUT COMPLICATIONS plan continue to monitor continue as per the teams await for all the results rest as per the team
--- NOTE | 2018-02-12 15:32 | PN ---
Physical Exam: SUBJECTIVE: Patient seen and examined at bedside. No overnight events. No new complaints. Denies CP, [place], SOB,abdominal pain, nausea or vomiting. OBJECTIVE: Vital Signs Period Temp Pulse Resp BP Sys/Huerta Pulse Ox Last 24 Hr 97.5 F-98.7 F 73-77 17-20 124-140/66-85 98 GENERAL: AAOx3 , NAD LUNGS: CTAB, No wheezes, and no crackles. No accessory muscle use. HEART: RRR, normal S1 and S2 without murmur, rub or gallop. ABDOMEN: Soft, NTND, NABS, no guarding, no rebound, no masses. No hepatomegaly or splenomegaly. MUSCULOSKELETAL: Decreased flexion of right hip secondary to back pain. (+) straight leg raise on right. (+) right lumbar paraspinal tenderness. No CVA tenderness. NEUROLOGICAL: Cranial nerves II-XII intact. Normal speech. Sensation intact. Strength 5/5 in RUE/LUE/LLE and 4/5 in RLE. DTRs 2+ and symmetric. Gait not observed. Laboratory Results - last 24 hr 02/07/18 02/11/18 02/11/18 15:15 16:43 21:34 Sodium Potassium Chloride Carbon Dioxide Anion Gap BUN Creatinine Creat Clearance w eGFR POC Glucometer 143 243 Random Glucose Calcium Phosphorus Total Bilirubin AST ALT Alkaline Phosphatase Total Protein Albumin Beta Globulins 1.4 H CAMILA & SPEP Interp Total Protein (CAMILA) 7.0 Albumin (CAMILA) 3.3 Albumin/Globulin (CAMILA) 0.9 Cywyv-6-Oipsmznou CAMILA 0.2 Bykrm-1-Xzttqngcu CAMILA 0.7 Gamma Globulins (CAMILA) 1.3 CAMILA M-Angel Not observed CAMILA Comments IEP IgG 1163 IEP IgA 581 H IEP IgM 53 02/12/18 02/12/18 02/12/18 06:12 06:30 11:15 Sodium 134 L Potassium 4.5 Chloride 102 Carbon Dioxide 25 Anion Gap 8 BUN 35 H Creatinine 1.8 H Creat Clearance w eGFR 38.81 POC Glucometer 145 276 Random Glucose 170 H Calcium 8.4 L Phosphorus 4.0 Total Bilirubin 0.4 AST 23 ALT 41 Alkaline Phosphatase 83 Total Protein 7.6 Albumin 3.8 Beta Globulins CAMILA & SPEP Interp Total Protein (CAMILA) Albumin (CAMILA) Albumin/Globulin (CAMILA) Xktqd-3-Thmvuswrj CAMILA Qjvjf-1-Wfnlveqgb CAMILA Gamma Globulins (CAMILA) CAMILA M-Angel CAMILA Comments IEP IgG IEP IgA IEP IgM Active Medications Generic Name Dose Route Start Last Admin Trade Name Freq PRN Reason Stop Dose Admin Acetaminophen 650 mg 02/02/18 17:48 02/12/18 10:23 Tylenol - PO 650 mg Q4H PRN Administration PAIN LEVEL 1 - 3 Acetaminophen 325 mg 02/07/18 09:58 02/12/18 00:29 Tylenol - PO 325 mg Q6H PRN Administration PAIN 6-10 Amlodipine Besylate 2.5 mg 02/10/18 10:00 02/12/18 10:22 Norvasc - PO 2.5 mg DAILY [facility] Administration Aspirin 81 mg 02/03/18 10:00 02/12/18 10:22 Asa - PO 81 mg DAILY [facility] Administration Cyclobenzaprine HCl 10 mg 02/03/18 13:59 02/12/18 06:14 Flexeril - PO 10 mg Q8H PRN Administration MUSCLE SPASM Glimepiride 4 mg 02/10/18 07:00 02/12/18 06:14 Amaryl - PO 4 mg DAILY@0700 [facility] Administration Insulin Aspart 1 vial 02/02/18 22:00 02/12/18 11:18 Novolog Vial Sliding Scale - SQ 6 units ACHS [facility] Administration Protocol Metoprolol Tartrate 50 mg 02/09/18 10:53 02/12/18 10:21 Lopressor - PO 50 mg BID [facility] Administration Oxycodone HCl 10 mg 02/07/18 09:57 02/12/18 10:22 Roxicodone - PO 10 mg Q6H PRN Administration PAIN 6-10 ASSESSMENT/PLAN: Problem List - Problems (1) Elevated serum immunoglobulin free light chain level Assessment/Plan: * Skeletal survey done; read pending. * No M spike observed * SPEP and UPEP, immunofixation done * Quant. Ig show increase in IgA * Urine free kappa/Lambda only slightly elevated - non specific * CT thorax was negative for bony lesions * Low suspicion of Multiple myeloma (2) Acute on chronic renal failure (3) CAD (coronary artery disease) Code(s): I25.10 - ATHSCL HEART DISEASE OF [place] CORONARY ARTERY W/O ANG PCTRS Qualifiers: Coronary Disease-Associated Artery/Lesion type: [place] artery [place] vs. transplanted heart: [place] heart Associated angina: angina presence unspecified Qualified Code(s): I25.10 - Atherosclerotic heart disease of [place] coronary artery without angina pectoris (4) Hyperlipidemia (5) Type 2 diabetes mellitus Visit type - Emergency Visit Emergency Visit: Yes ED Registration Date: 02/02/18 Care time: The patient presented to the Emergency Department on the above date and was hospitalized for further evaluation of their emergent condition. - New Patient This patient is new to me today: No - Critical Care Critical Care patient: No
--- NOTE | 2018-02-12 23:17 | PN ---
Progress Note, Physician - Current Medication List Current Medications: Active Medications Acetaminophen (Tylenol -) 650 mg PO Q4H PRN PRN Reason: PAIN LEVEL 1 - 3 Last Admin: 02/12/18 16:24 Dose: 650 mg Acetaminophen (Tylenol -) 325 mg PO Q6H PRN PRN Reason: PAIN 6-10 Last Admin: 02/12/18 00:29 Dose: 325 mg Amlodipine Besylate (Norvasc -) 2.5 mg PO DAILY [facility] Last Admin: 02/12/18 10:22 Dose: 2.5 mg Aspirin (Asa -) 81 mg PO DAILY [facility] Last Admin: 02/12/18 10:22 Dose: 81 mg Cyclobenzaprine HCl (Flexeril -) 10 mg PO Q8H PRN PRN Reason: MUSCLE SPASM Last Admin: 02/12/18 06:14 Dose: 10 mg Glimepiride (Amaryl -) 4 mg PO DAILY@0700 [facility] Last Admin: 02/12/18 06:14 Dose: 4 mg Insulin Aspart (Novolog Vial Sliding Scale -) 1 vial SQ [facility]; Protocol Last Admin: 02/12/18 21:27 Dose: 6 units Metoprolol Tartrate (Lopressor -) 50 mg PO BID [facility] Last Admin: 02/12/18 21:23 Dose: 50 mg Oxycodone HCl (Roxicodone -) 10 mg PO Q6H PRN PRN Reason: PAIN 6-10 Last Admin: 02/12/18 16:24 Dose: 10 mg - Objective Vital Signs: Vital Signs Temperature 98.0 F 02/12/18 18:00 Pulse Rate 73 02/12/18 18:00 Respiratory Rate 20 02/12/18 18:00 Blood Pressure 134/72 02/12/18 18:00 O2 Sat by Pulse Oximetry (%) 100 02/12/18 09:00 Labs: CBC, BMP 02/11/18 07:55 02/12/18 06:30 INR, PTT INR 0.99 (0.83-1.09) 02/02/18 13:15 Problem List - Problems (1) Acute on chronic renal failure Code(s): N17.9 - ACUTE KIDNEY FAILURE, UNSPECIFIED; N18.9 - CHRONIC KIDNEY DISEASE, UNSPECIFIED Qualifiers: Chronic kidney disease stage: stage 2 (mild) (2) Rhabdomyolysis Code(s): M62.82 - RHABDOMYOLYSIS (3) Lumbar back pain Code(s): M54.5 - LOW BACK PAIN (4) CAD (coronary artery disease) Code(s): I25.10 - ATHSCL HEART DISEASE OF [place] CORONARY ARTERY W/O ANG PCTRS Qualifiers: Coronary Disease-Associated Artery/Lesion type: [place] artery [place] vs. transplanted heart: [place] heart Associated angina: angina presence unspecified Qualified Code(s): I25.10 - Atherosclerotic heart disease of [place] coronary artery without angina pectoris (5) Hyperlipidemia Code(s): E78.5 - HYPERLIPIDEMIA, UNSPECIFIED Qualifiers: Hyperlipidemia type: unspecified Qualified Code(s): E78.5 - Hyperlipidemia , unspecified (6) Hypertension Code(s): I10 - ESSENTIAL (PRIMARY) HYPERTENSION (7) Type 2 diabetes mellitus Code(s): E11.9 - TYPE 2 DIABETES MELLITUS WITHOUT COMPLICATIONS Qualifiers: Diabetes mellitus property developer insulin use: without fci use Diabetes mellitus complication status: with kidney complications Chronic kidney disease stage: stage 2 (mild)
[2018-02-13] MEDS: CYCLOBENZAPRINE HCL 10 MG TABLET (FP) PO PRN (03:51)
[2018-02-13] MEDS: INSULIN SLIDING SCALE (NOVOLOG) 1 VIAL SQ SCH ×2 (06:03→11:55)
[2018-02-13] MEDS: GLIMEPIRIDE 4 MG TABLET (FP) PO SCH (06:04)
[2018-02-13] MEDS: ASPIRIN 81 MG CHEWABLE TABLETS PO SCH (09:50)
[2018-02-13] MEDS: METOPROLOL TARTRATE 25 MG TABLET (FP) PO SCH (09:50)
[2018-02-13] MEDS: amLODIPine BESYLATE 2.5 MG TABLET (FP) PO SCH (09:50)
[2018-02-13] MEDS: ACETAMINOPHEN 325 MG TABLET (FP) PO PRN (09:55)
[2018-02-13 11:08] VITALS: BP 155/95; PULSE 78; TEMP 97.5
--- NOTE | 2018-02-13 14:09 | PN ---
Physical Exam: SUBJECTIVE:SUBJECTIVE: Patient seen and examined at bedside. No overnight events. No new complaints. Denies CP, WESLEY, SOB,abdominal pain, nausea or vomiting. OBJECTIVE: Vital Signs Period Temp Pulse Resp BP Sys/[place] Pulse Ox Last 24 Hr 97.5 F-98.7 F 73-77 17-20 124-140/66-85 98 GENERAL: AAOx3 , NAD LUNGS: CTAB, No wheezes, and no crackles. No accessory muscle use. HEART: RRR, normal S1 and S2 without murmur, rub or gallop. ABDOMEN: Soft, NTND, NABS, no guarding, no rebound, no masses. No hepatomegaly or splenomegaly. MUSCULOSKELETAL: Decreased flexion of right hip secondary to back pain. (+) straight leg raise on right. (+) right lumbar paraspinal tenderness. No CVA tenderness. NEUROLOGICAL: Cranial nerves II-XII intact. Normal speech. Sensation intact. Strength 5/5 in RUE/LUE/LLE and 4/5 in RLE. DTRs 2+ and symmetric. Gait not observed. Laboratory Results - last 24 hr 02/12/18 02/12/18 02/13/18 16:27 21:25 06:00 POC Glucometer 185 261 149 02/13/18 11:54 POC Glucometer 327 Active Medications Generic Name Dose Route Start Last Admin Trade Name Freq PRN Reason Stop Dose Admin Acetaminophen 650 mg 02/02/18 17:48 02/13/18 09:55 Tylenol - PO 650 mg Q4H PRN Administration PAIN LEVEL 1 - 3 Acetaminophen 325 mg 02/07/18 09:58 02/12/18 23:37 Tylenol - PO 325 mg Q6H PRN Administration PAIN 6-10 Amlodipine Besylate 2.5 mg 02/10/18 10:00 02/13/18 09:50 Norvasc - PO 2.5 mg DAILY [facility] Administration Aspirin 81 mg 02/03/18 10:00 02/13/18 09:50 Asa - PO 81 mg DAILY [facility] Administration Cyclobenzaprine HCl 10 mg 02/03/18 13:59 02/13/18 03:51 Flexeril - PO 10 mg Q8H PRN Administration MUSCLE SPASM Glimepiride 4 mg 02/10/18 07:00 02/13/18 06:04 Amaryl - PO 4 mg DAILY@0700 [facility] Administration Insulin Aspart 1 vial 02/02/18 22:00 02/13/18 11:55 Novolog Vial Sliding Scale - SQ 8 units ACHS [facility] Administration Protocol Metoprolol Tartrate 50 mg 02/09/18 10:53 02/13/18 09:50 Lopressor - PO 50 mg BID [facility] Administration ASSESSMENT/PLAN: 57 yo M with PMHx of CAD, IA, HTN, Hyperlipidemia,Type 2 DM,CKD who comes to the ED today complaining of low back pain. Problem List - Problems (1) Elevated serum immunoglobulin free light chain level Assessment/Plan: * Skeletal survey shows no lytic or blastic lesions * No M spike observed * SPEP and UPEP, immunofixation reported * Quant. Ig show increase in IgA * Urine free kappa/Lambda only slightly elevated 1.74 - non specific * CT thorax was negative for bony lesions * Low suspicion of Multiple myeloma (2) Acute on chronic renal failure (3) CAD (coronary artery disease) Code(s): I25.10 - ATHSCL HEART DISEASE OF [place] CORONARY ARTERY W/O ANG PCTRS Qualifiers: Coronary Disease-Associated Artery/Lesion type: [place] artery [place] vs. transplanted heart: [place] heart Associated angina: angina presence unspecified Qualified Code(s): I25.10 - Atherosclerotic heart disease of [place] coronary artery without angina pectoris (4) Hyperlipidemia (5) Type 2 diabetes mellitus Visit type - Emergency Visit Emergency Visit: Yes ED Registration Date: 02/02/18 Care time: The patient presented to the Emergency Department on the above date and was hospitalized for further evaluation of their emergent condition. - New Patient This patient is new to me today: No - Critical Care Critical Care patient: No
--- NOTE | 2018-02-13 16:10 | PN ---
Progress Note, Physician History of Present Illness: Pt seen and examined. He says he wants to go home. He denies shortness of breath. - Objective Vital Signs: Vital Signs Temperature 97.5 F L 02/13/18 09:00 Pulse Rate 78 02/13/18 09:00 Respiratory Rate 18 02/13/18 09:00 Blood Pressure 155/95 02/13/18 09:00 O2 Sat by Pulse Oximetry (%) 99 02/13/18 09:00 Constitutional: Yes: Calm Eyes: Yes: Conjunctiva Clear HENT: Yes: Atraumatic Neck: Yes: Supple Cardiovascular: Yes: S1, S2 Respiratory: Yes: CTA Bilaterally Gastrointestinal: Yes: Soft, Abdomen, Obese Genitourinary: Yes: WNL Musculoskeletal: Yes: WNL Edema: No Neurological: Yes: Oriented Psychiatric: Yes: Oriented Labs: CBC, BMP 02/11/18 07:55 02/12/18 06:30 INR, PTT INR 0.99 (0.83-1.09) 02/02/18 13:15 Problem List - Problems (1) Hydronephrosis Code(s): N13.30 - UNSPECIFIED HYDRONEPHROSIS (2) Acute kidney injury Code(s): N17.9 - ACUTE KIDNEY FAILURE, UNSPECIFIED (3) Rhabdomyolysis Code(s): M62.82 - RHABDOMYOLYSIS (4) CAD (coronary artery disease) Code(s): I25.10 - ATHSCL HEART DISEASE OF [place] CORONARY ARTERY W/O ANG PCTRS Qualifiers: Coronary Disease-Associated Artery/Lesion type: [place] artery [place] vs. transplanted heart: [place] heart Associated angina: angina presence unspecified Qualified Code(s): I25.10 - Atherosclerotic heart disease of [place] coronary artery without angina pectoris (5) Hyperlipidemia Code(s): E78.5 - HYPERLIPIDEMIA, UNSPECIFIED Qualifiers: Hyperlipidemia type: unspecified Qualified Code(s): E78.5 - Hyperlipidemia , unspecified (6) Hypertension Code(s): I10 - ESSENTIAL (PRIMARY) HYPERTENSION (7) Lumbar back pain Code(s): M54.5 - LOW BACK PAIN (8) Type 2 diabetes mellitus Code(s): E11.9 - TYPE 2 DIABETES MELLITUS WITHOUT COMPLICATIONS Qualifiers: Diabetes mellitus skilled nursing insulin use: without skilled nursing use Diabetes mellitus complication status: with kidney complications Chronic kidney disease stage: stage 2 (mild) Assessment/Plan Current Medications Generic Name Dose Route Start Last Admin Trade Name Freq PRN Reason Stop Dose Admin Acetaminophen 650 mg 02/02/18 17:48 02/12/18 10:23 Tylenol - PO 650 mg Q4H PRN Administration PAIN LEVEL 1 - 3 Acetaminophen 325 mg 02/07/18 09:58 02/12/18 00:29 Tylenol - PO 325 mg Q6H PRN Administration PAIN 6-10 Amlodipine Besylate 2.5 mg 02/10/18 10:00 02/12/18 10:22 Norvasc - PO 2.5 mg DAILY [facility] Administration Aspirin 81 mg 02/03/18 10:00 02/12/18 10:22 Asa - PO 81 mg DAILY [facility] Administration Cyclobenzaprine HCl 10 mg 02/03/18 13:59 02/12/18 06:14 Flexeril - PO 10 mg Q8H PRN Administration MUSCLE SPASM Glimepiride 4 mg 02/10/18 07:00 02/12/18 06:14 Amaryl - PO 4 mg DAILY@0700 [facility] Administration Sodium Chloride 1,000 mls @ 50 mls/hr 02/11/18 13:45 02/12/18 10:23 Normal Saline - IV 02/12/18 13:32 50 mls/hr ASDIR [facility] Administration Insulin Aspart 1 vial 02/02/18 22:00 02/12/18 11:18 Novolog Vial Sliding Scale - SQ 6 units ACHS [facility] Administration Protocol Metoprolol Tartrate 50 mg 02/09/18 10:53 02/12/18 10:21 Lopressor - PO 50 mg BID [facility] Administration Oxycodone HCl 10 mg 02/07/18 09:57 02/12/18 10:22 Roxicodone - PO 10 mg Q6H PRN Administration PAIN 6-10 Impression 1. 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 rhabdo 3. right side hydro 4. DM uncontrolled 5. HTN 6. back pain 7. aicd 8. HLD Plan - pt will come to office for follow up - I explained the importance of follow up - I asked him to bring all of his meds when he comes - will need better glucose control as well - avoid nsaids - follow bone survey Dr Ivy
== END 2018-02-13 15:21 | disposition home or self-care (01) | DRG 683 ==
LOC: JER 12:34 → JERBED 17:31 → J5S 21:55
PROVIDERS: ADMIT Internal Medicine; ATTEND Internal Medicine
DX: N17.9 Acute kidney failure, unspecified (principal); I13.0 Hypertensive heart and chronic kidney disease with heart failure and stage 1 through stage 4 chronic kidney disease, or unspecified chronic kidney disease; M62.82 Rhabdomyolysis; N13.30 Unspecified hydronephrosis; I25.10 Atherosclerotic heart disease of native coronary artery without angina pectoris; I50.9 Heart failure, unspecified; M54.5 Low back pain; E11.65 Type 2 diabetes mellitus with hyperglycemia; E11.22 Type 2 diabetes mellitus with diabetic chronic kidney disease; E78.5 Hyperlipidemia, unspecified; Z98.61 Coronary angioplasty status; N18.9 Chronic kidney disease, unspecified
CPT/HCPCS: 36415; 71045-TC-FY; 71250-TC; 72128-TC; 72131-TC; 76775-TC; 77074-TC-FY; 80048; 80053; 80061; 81003; 81015; 82436; 82550; 82553; 82570; 82784; 82962; 83036; 83721; 83883; 84100; 84133; 84155; 84156; 84165; 84300; 84484; 85025; 85027; 85610; 85651; 85730; 86140; 86334; 87040; 87086; 90688; 93005; 93010; 93306-TC; 97116-GP; 97161-GP; 99285-25; G0008; J7030